=== PATIENT | female | born 1990 | race Caucasian/White ===

== ENCOUNTER 2017-11-30 23:20 | Emergency (ER) | payer SELFPAY ==
[~2017-11-30] VITALS: Ht 170.2 cm; Wt 95.3 kg
[~2017-11-30 23:20] MED LIST: ACHD5005 PO; CEPH500C PO; DCS100C PO; FRS325T PO; IBP600T1 PO; Ibuprofen PO; NAPR550T PO; ONDA8TAB9 PO; OXYC-12 PO; PNV; PREN1TAB39 PO; TYELNOL
[2017-11-30] MEDS ORDERED: RX-NAPROXEN (NAPROSYN) 250 MG TAB PPK#4 PO STA (23:50)
[2017-11-30] MEDS ORDERED: RX-TRAMADOL 50 MG (ULTRAM) TAB PPK#4 PO STA (23:50)
[2017-11-30] MEDS ORDERED: RX-CLINDAMYCIN 150 MG (CLEOCIN) CAP PPK#4 PO STA (23:50)
[2017-11-30] MEDS ORDERED: LIDOCAINE 1% INJ 50 ML (XYLOCAINE) VIAL ONE (23:50)
[2017-11-30] MEDS ORDERED: CLIN300C11 PO (23:54)
[2017-11-30] MEDS ORDERED: TRAM-42 PO (23:54)
[2017-11-30] MEDS ORDERED: LIDO15SO2 MM (23:54)
[2017-11-30] MEDS ORDERED: NAPR-915 PO (23:54)
--- NOTE | 2017-11-30 23:55 | ED EENT ---
History of Present Illness General Chief Complaint: Dental Problems/Pain Stated Complaint: TOOTH PAIN Nursing Triage Note: PT TO ED 10 W/ C/O RT SIDE DENTAL PAIN X4 DAYS W/ JAW SWELLING ONSET X2 DAYS. NO OTHER C/O VOICED Source: patient History of Present Illness Date Seen by Provider: Nov 30, 2017 Time Seen by Provider: 23:42 Initial Comments C/O DENTAL PAIN--RIGHT LOWER MOLAR--X 4 DAYS, WITH PAIN RADIATING UP TO RIGHT EVANGELICAL AREA C/O RIGHT JAW SWELLING X 2 DAYS NO FEVER HAS HISTORY OF FREQUENT DENTAL PROBLEMS,BUT HAS NOT SEEN A DENTIST IN OVER 6 MONTHS, AND HAS NOT ATTEMPTED TO CONTACT A DENTIST AT ANY TIME SINCE THESE CURRENT SYMPTOMS STARTED. STATES NO RELIEF WITH MAE AT 1900 TONIGHT STATES SHE CANNOT OPEN HER MOUTH DUE TO PAIN PCP:[facility] Allergies and Home Medications Allergies Coded Allergies: metronidazole (Verified Allergy, Unknown, 12/04/09) Home Medications Clindamycin HCl 300 Mg Capsule, 300 MG PO QID Prescribed by: JOE FISHMAN on 11/30/172353 Docusate Sodium 100 Mg Cap, 100 MG PO BID Prescribed by: HIREN HOANG on 04/18/14825 Ferrous Sulfate 325 Mg Tablet, 1 TAB PO BID, (Reported) Hydrocodone Bit/Acetaminophen 1 Tab Tab, 1-2 TAB PO Q4H PRN for PAIN Prescribed by: HIREN HOANG on 04/18/14825 Lidocaine HCl 15 Ml Solution, 1-2 ML MM Q 1-2 HOURS Prescribed by: JOE FISHMAN on 11/30/172353 Naproxen 500 Mg Tablet, 500 MG PO BID Prescribed by: JOE FISHMAN on 11/30/172353 Vits W-Ca,Fe,Fa(<1MG) 1 Each Tablet, 1 EACH PO DAILY, (Reported) Tramadol HCl 50 Mg Tablet, 50 MG PO Q4H Prescribed by: JOE FISHMAN on 11/30/172353 [Ibuprofen] 600 MG TAB, 600 MG PO Q6H PRN for PAIN Prescribed by: HIREN HOANG on 04/18/14825 Patient Home Medication List Home Medication List Reviewed: Yes Review of Systems Constitutional: no symptoms reported Eyes: No Symptoms Reported Ears: No Symptoms Reported Nose: no symptoms reported Mouth: see HPI Throat: no symptoms reported Respiratory: no symptoms reported Cardiovascular: no symptoms reported Gastrointestinal: no symptoms reported : No LMP: Nov 17, 2017 Musculoskeletal: no symptoms reported Skin: no symptoms reported Neurological: No Symptoms Reported Hematologic/Lymphatic: No Symptoms Reported Immunological/Allergic: no symptoms reported Past Wezdcpg-Iyidkk-Ewiivl Hx Patient Social History Alcohol Use: Occasionally Uses Recreational Drug Use: No Smoking Status: Current Everyday Smoker (1/2 PPD) Type Used: Cigarettes (2 PPD) Recent Foreign Travel: No Contact w/Someone Who Travel: No Recent Infectious Disease Expo: No Recent Hopitalizations: No Physical Abuse: No Sexual Abuse: No Mistreated: No Fear: No Immunizations Up To Date Tetanus Booster (TDap): Less than 5yrs Surgeries History of Surgeries: Yes (C-SECITON X 3; BTL) Surgeries: Section, Tubal Ligation Respiratory History of Respiratory Disorde: No Cardiovascular History of Cardiac Disorders: No Neurological History of Neurological Disord: No 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 System : No Hx 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 Disorders: No Sexually Transmitted Disease: No HIV/AIDS: No Female 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 Disorders: Denies BANQUET CHEF History: Tubal Ligation Genitourinary History of Genitourinary Disor: No Gastrointestinal History of Gastrointestinal Di: No Musculoskeletal History of Musculoskeletal Dis: No Endocrine History of Endocrine Disorders: No HEENT History of HEENT Disorders: Yes (DENTAL ISSUES) Hearing Impairment: Denies Cancer History of Cancer: No Psychosocial History of Psychiatric Problem: No Suicide Risk Score: 0 Integumentary History of Skin or Integumenta: No Blood Transfusions History of Blood Disorders: No Adverse Reaction to a Blood Tr: No Family Medical History Significant Family History: No Pertinent Family Hx Family Medial History: Family history: Asthma 19 MOTHER Family history: Thyroid disorder 19 MOTHER Hypercholesterolemia 19 MOTHER Physical Exam Vital Signs Vital Signs - First Documented 11/30/17 23:28 Temp 97.1 Pulse 91 Resp 20 B/P (MAP) 134/88 (103) Pulse Ox 99 O2 Delivery Room Air General Appearance: WD/WN, other (CRYING, SIPPING WATER ) Eyes: bilateral eye normal inspection, bilateral eye PERRL, bilateral eye EOMI Ears: bilateral ear auricle normal, bilateral ear canal normal, bilateral ear TM normal Nose: normal inspection Mouth/Throat: dental tenderness (RIGHT LOWER 2ND MOLAR WITH CARIES, TENDERNESS TO PERCUSSION AND SURROUNDING EDEMA AND INFLAMMATION TO ADJACENT GUM TISSUE. 3RD MOLARS DO NOT APPEAR TO BE ERUPTED. NO AREAS OF FLUCTUANCE. NO ERYTHEMA TO FACE. ), No excessive drooling, No foreign body, mandibular swelling (MILD TO MODERATE SWELLING ON RIGHT), trismus Neck: full range of motion, supple, lymphadenopathy (R) (MILD ANTERIOR CERVICAL AND SUBMENTAL ) Cardiovascular: regular rate, rhythm, no murmur Respiratory: normal breath sounds Neurologic/Psychiatric: knockdown worker II-XII nml as tested, no motor/sensory deficits, alert, oriented x 3 Skin: normal color, warm/dry Progress/Results/Core Measures Results/Orders My Orders Orders - JOE FISHMAN DO Ketorolac Injection (Toradol Injection) (12/01/17 00:00) Ceftriaxone Injection (Rocephin Injectio (12/01/17 00:00) Lidocaine 1% Injection (Xylocaine 1% Inj (12/01/17 00:00) Orphenadrine Injection (Norflex Injectio (12/01/17 00:00) Rx-Clindamycin Capsule (Rx-Cleocin Capsu (11/30/17 23:50) Rx-Tramadol Hcl (Rx-Ultram) (11/30/17 23:50) Rx-Naproxen (Rx-Naprosyn) (11/30/17 23:50) Lidocaine 1% (Xylocaine 1%) (11/30/17 23:50) Lidocaine 2% Viscous 15 Ml (Xylocaine Vi (12/01/17 00:00) Medications Given in ED Current Medications Medications Dose Ordered Sig/Gaurav Route Start Time Stop Time Status Last Admin Dose Admin Ceftriaxone Sodium 1,000 mg ONCE ONCE IM 12/01/17 00:00 12/01/17 00:01 DC 11/30/17 23:58 1,000 MG Ketorolac Tromethamine 60 mg ONCE ONCE IM 12/01/17 00:00 12/01/17 00:01 DC 12/01/17 00:00 60 MG Lidocaine HCl 5 ml ONCE ONCE MM 12/01/17 00:00 12/01/17 00:12 DC 12/01/17 00:15 5 ML Lidocaine HCl 50 ml STK-MED ONCE .ROUTE 11/30/17 23:50 11/30/17 23:54 DC 12/01/17 00:02 50 ML Orphenadrine Citrate 60 mg ONCE ONCE IM 12/01/17 00:00 12/01/17 00:01 DC 12/01/17 00:01 60 MG Vital Signs/I&O Vital Sign - Last 12Hours 11/30/17 12/01/17 23:28 00:15 Temp 97.1 Pulse 91 0 Resp 20 0 B/P (MAP) 134/88 (103) 0/0 Pulse Ox 99 0 O2 Delivery Room Air Blood Pressure Mean: 103 Progress Note : Progress Note PT ADVISED OF IMPORTANCE OF FOLLOW UP WITH DENTIST THIS WEEK FOR FURTHER CARE Departure Impression Impression: Primary Impression: Dental caries Additional Impression: Dental abscess Disposition: HOME, SELF-CARE Condition: Stable Departure-Patient Inst. [place] [facility] [place] Instructions: Dental Pain (DC), Tooth Abscess (DC) Add. Discharge Instructions: FREQUENT SALT WATER SWISHES ALTERNATE ICE AND HEAT TO AREA AT 20 MINUTE INTERVALS FOLLOW UP WITH DENTIST THIS WEEK FOR FURTHER CARE All discharge instructions reviewed with patient and/or family. Voiced understanding. Scripts Tramadol HCl (Ultram) 50 Mg Tablet 50 MG PO Q4H, #20 TAB Prov: JOE FISHMAN DO 11/30/17 Naproxen (Naproxen) 500 Mg Tablet 500 MG PO BID, #20 TAB Prov: JOE FISHMAN DO 11/30/17 Lidocaine HCl (Lidocaine HCl Viscous) 15 Ml Solution 1-2 ML MM Q 1-2 HOURS for Pain, #1 EA Prov: JOE FISHMAN DO 11/30/17 Clindamycin HCl (Clindamycin HCl) 300 Mg Capsule 300 MG PO QID for FOR INFECTION, #40 CAP Prov: JOE FISHMAN DO 11/30/17 JOE FISHMAN DO Nov 30, 2017 23:55
[2017-12-01] MEDS ORDERED: cefTRIAXone 1 GM (ROCEPHIN) VIAL IM ONE
[2017-12-01] MEDS ORDERED: ORPHENADRINE 60 MG/2 ML (NORFLEX) AMP IM ONE
[2017-12-01] MEDS ORDERED: KETOROLAC 60 MG/2 ML VIAL IM ONE
[2017-12-01] MEDS ORDERED: LIDOCAINE 1% INJ 20 ML (XYLOCAINE) VIAL INJ ONE
[2017-12-01] MEDS ORDERED: LIDOCAINE 2% VISCOUS 15 ML UDC MM ONE
[2017-12-01 00:15] VITALS: BP 0/0
== END 2017-12-01 00:15 | disposition home or self-care (01) ==
LOC: EDUNIT# 23:20 → ER 23:24
DX: K02.9 Dental caries, unspecified (principal); K04.7 Periapical abscess without sinus; F17.210 Nicotine dependence, cigarettes, uncomplicated; Z88.1 Allergy status to other antibiotic agents; Z98.51 Tubal ligation status; Z87.59 Personal history of other complications of pregnancy, childbirth and the puerperium
CPT/HCPCS: 96372; 99284

== ENCOUNTER 2018-01-01 14:43 | Inpatient (IN) | payer SELFPAY ==
[~2018-01-01] VITALS: Ht 170.2 cm; Wt 86.3 kg
[~2018-01-01 14:43] MED LIST changes: +AMOX500C2 PO; +CEFU500T63 PO; +CLIN300C11 PO; +HYDR-757 PO; +LIDO15SO2 MM; +NAPR-915 PO; +TRAM-42 PO
--- OUTSIDE RECORDS SUMMARY | 2018-01-01 14:48 | XMS REPORT | Continuity of Care Document ---
Author Author [facility] Organization [facility] Address Unknown Phone Unavailable Allergies Active Description Code Type Severity Reaction Onset Reported/Identified Relationship to Patient Clinical Status Yes metronidazole [id number] Drug Allergy Unknown N/A 12/04/2009 Yes metronidazole [id number] Drug Allergy Unknown RASH 12/08/2017 Medications There is no data. Problems Date Dx Coded Attending Type Code Diagnosis Diagnosed By 01/22/2011 654.20 Previous C- section 01/22/2011 V22.1 , Normal Other 01/22/2011 654.20 Previous C- section 01/22/2011 V22.1 , Normal Other 01/22/2011 654.20 Previous C- section 01/22/2011 V22.1 , Normal Other 01/22/2011 654.20 Previous C- section 01/22/2011 V22.1 , Normal Other 01/22/2011 NICHOLAS KHALIL DO 654.20 Previous 01/22/2011 NICHOLAS KHALIL DO K V22.1 , Normal Other 01/22/2011 DUNG ENVIRONMENTAL HEALTH TECHNOLOGIST, JET A 654.20 Previous 01/22/2011 DUNG ENVIRONMENTAL HEALTH TECHNOLOGIST, JET A V22.1 , Normal Other 01/22/2011 DUNG APRN, EJT A 654.20 Previous 01/22/2011 DUNG ENVIRONMENTAL HEALTH TECHNOLOGIST, JET A V22.1 , Normal Other 01/22/2011 NOE KHALIL DOA K 654.20 Previous 01/22/2011 NICHOLAS KHALIL DO K V22.1 , Normal Other 01/22/2011 JUNITO STOVER, BRUNA Silver 654.20 Previous 01/22/2011 BRUNA WILD MD V22.1 , Normal Other 01/22/2011 JUNITO STOVER, BRUNA Silver 654.20 Previous 01/22/2011 BRUNA WILD MD2.1 , Normal Other 01/22/2011 BRUNA WILD MD 654.20 Previous 01/22/2011 BRUNA WILD MD V22.1 , Normal Other 01/22/2011 JET RAZO APRN 654.20 Previous 01/22/2011 JET RAZO APRN V22.1 , Normal Other 02/04/2011 V04.3 Rubella Non- immune - Need For Vaccination 02/04/2011 V04.3 Rubella Non- immune - Need For Vaccination 02/04/2011 V04.3 Rubella Non- immune - Need For Vaccination 02/04/2011 V04.3 Rubella Non- immune - Need For Vaccination 02/04/2011 NICHOLAS KHALIL DO V04.3 Rubella Non-immune - Need For Vaccination 02/04/2011 JET RAZO APRN V04.3 Rubella Non-immune - Need For Vaccination 02/04/2011 JET RAZO APRN V04.3 Rubella Non-immune - Need For Vaccination 02/04/2011 NICHOLAS KHALIL DO V04.3 Rubella Non-immune - Need For Vaccination 02/04/2011 BRUNA WILD MD V04.3 Rubella Non-immune - Need For Vaccination 02/04/2011 BRUNA WILD MD V04.3 Rubella Non-immune - Need For Vaccination 02/04/2011 BRUNA WILD MD V04.3 Rubella Non-immune - Need For Vaccination 02/04/2011 JET RAZO APRN V04.3 Rubella Non-immune - Need For Vaccination 02/13/2011 V72.31 Toll Ticket Clerk Exam, Routine 02/13/2011 V74.5 Std Screen 02/13/2011 V72.31 Toll Ticket Clerk Exam, Routine 02/13/2011 V74.5 Std Screen 02/13/2011 V72.31 Toll Ticket Clerk Exam, Routine 02/13/2011 V74.5 Std Screen 02/13/2011 V72.31 Toll Ticket Clerk Exam, Routine 02/13/2011 V74.5 Std Screen 02/13/2011 NICHOLAS KHALIL DO V72.31 Toll Ticket Clerk Exam, Routine 02/13/2011 KHALIL DO, NICHOLAS K V74.5 Std Screen 02/13/2011 DUNG ENVIRONMENTAL HEALTH TECHNOLOGIST, JET A V72.31 Toll Ticket Clerk Exam, Routine 02/13/2011 DUNG ENVIRONMENTAL HEALTH TECHNOLOGIST, JET A V74.5 Std Screen 02/13/2011 DUNG ENVIRONMENTAL HEALTH TECHNOLOGIST, JET A V72.31 Toll Ticket Clerk Exam, Routine 02/13/2011 DUNG ENVIRONMENTAL HEALTH TECHNOLOGIST, JET A V74.5 Std Screen 02/13/2011 NICHOLAS KHALIL DO K V72.31 Toll Ticket Clerk Exam, Routine 02/13/2011 NICHOLAS KHALIL DO K V74.5 Std Screen 02/13/2011 JUNITO STOVER, BRUNA Silver V72.31 Toll Ticket Clerk Exam, Routine 02/13/2011 JUNITO STOVER, BRUNA Silver V74.5 Std Screen 02/13/2011 JUNITO STOVER, BRUNA Silver V72.31 Toll Ticket Clerk Exam, Routine 02/13/2011 JUNITO STOVER, BRUNA Silver V74.5 Std Screen 02/13/2011 JUNITO STOVER, BRUNA Silver V72.31 Toll Ticket Clerk Exam, Routine 02/13/2011 JUNITO STOVER, BRUNA Silver V74.5 Std Screen 02/13/2011 DUNG ENVIRONMENTAL HEALTH TECHNOLOGIST, JET A V72.31 Toll Ticket Clerk Exam, Routine 02/13/2011 DUNG ENVIRONMENTAL HEALTH TECHNOLOGIST, JET A V74.5 Std Screen 05/27/2011 V04.81 Flu Shot 05/27/2011 V04.81 Flu Shot 05/27/2011 V04.81 Flu Shot 05/27/2011 V04.81 Flu Shot 05/27/2011 NICHOLAS KHALIL DO V04.81 Flu Shot 05/27/2011 DUNG APRN, JET A V04.81 Flu Shot 05/27/2011 DUNG APRN, JET A V04.81 Flu Shot 05/27/2011 NICHOLAS KHALIL DO V04.81 Flu Shot 05/27/2011 JUNITO STOVER, BRUNA Silver V04.81 Flu Shot 05/27/2011 JUNITO STOVER, BRUNA Silver V04.81 Flu Shot 05/27/2011 JUNITO STOVER, BRUNA Silver V04.81 Flu Shot 05/27/2011 DUNGKori VILLA JET A V04.81 Flu Shot 10/07/2011 V24.2 visit for: exam 10/07/2011 V25.01 Oral Contraceptives 10/07/2011 V25.9 Gynecologic Services Contraceptive Management 10/07/2011 V24.2 visit for: exam 10/07/2011 V25.01 Oral Contraceptives 10/07/2011 V25.9 Gynecologic Services Contraceptive Management 10/07/2011 V24.2 visit for: exam 10/07/2011 V25.01 Oral Contraceptives 10/07/2011 V25.9 Gynecologic Services Contraceptive Management 10/07/2011 V24.2 visit for: exam 10/07/2011 V25.01 Oral Contraceptives 10/07/2011 V25.9 Gynecologic Services Contraceptive Management 10/07/2011 NOE KHALIL DOA K V24.2 visit for: exam 10/07/2011 NICHOLAS KHALIL DO V25.01 Oral Contraceptives 10/07/2011 NOE KHALIL DOA K V25.9 Gynecologic Services Contraceptive Management 10/07/2011 MARTIN RAZO APRNIDI A V24.2 visit for: exam 10/07/2011 MARTIN RAZO APRNIDI A V25.01 Oral Contraceptives 10/07/2011 DUNG VILLA JET A V25.9 Gynecologic Services Contraceptive Management 10/07/2011 DUNGKroi VILLA JET A V24.2 visit for: exam 10/07/2011 MARTIN RAZO APRNIDI A V25.01 Oral Contraceptives 10/07/2011 DUNG VILLA JET A V25.9 Gynecologic Services Contraceptive Management 10/07/2011 NOE KHALIL DOA K V24.2 visit for: exam 10/07/2011 NICHOLAS KHALIL DO K V25.01 Oral Contraceptives 10/07/2011 NICHOLAS KHALIL DO K V25.9 Gynecologic Services Contraceptive Management 10/07/2011 BRUNA WILD MD V24.2 visit for: exam 10/07/2011 BRUNA WILD MD V25.01 Oral Contraceptives 10/07/2011 BRUNA WILD MD V25.9 Gynecologic Services Contraceptive Management 10/07/2011 BRUNA WILD MD V24.2 visit for: exam 10/07/2011 BRUNA WILD MD V25.01 Oral Contraceptives 10/07/2011 BRUNA WILD MD V25.9 Gynecologic Services Contraceptive Management 10/07/2011 JUNITO STOVER, BRUNA Silver V24.2 visit for: exam 10/07/2011 BRUNA WILD MD V25.01 Oral Contraceptives 10/07/2011 BRUNA WLID MD V25.9 Gynecologic Services Contraceptive Management 10/07/2011 JET RAZO APRN V24.2 visit for: exam 10/07/2011 JET RAZO APRN V25.01 Oral Contraceptives 10/07/2011 JET RAZO APRN V25.9 Gynecologic Services Contraceptive Management 01/22/2013 724.2 LUMBAGO/ LOW BACK PAIN 01/22/2013 724.2 LUMBAGO/ LOW BACK PAIN 01/22/2013 724.2 LUMBAGO/ LOW BACK PAIN 01/22/2013 724.2 LUMBAGO/ LOW BACK PAIN 01/22/2013 NICHOLAS KHALIL DO 724.2 LUMBAGO/ LOW BACK PAIN 01/22/2013 JET RAZO APRN A 724.2 LUMBAGO/ LOW BACK PAIN 01/22/2013 JET RAZO APRN A 724.2 LUMBAGO/ LOW BACK PAIN 01/22/2013 NICHOLAS KHALIL DO 724.2 LUMBAGO/ LOW BACK PAIN 01/22/2013 BRUNA WILD MD 724.2 LUMBAGO/ LOW BACK PAIN 01/22/2013 BRUNA WILD MD 724.2 LUMBAGO/ LOW BACK PAIN 01/22/2013 BRUNA WILD MD 724.2 LUMBAGO/ LOW BACK PAIN 01/22/2013 JET RAZO APRN A 724.2 LUMBAGO/ LOW BACK PAIN 02/01/2013 381.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 02/01/2013 381.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 02/01/2013 381.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 02/01/2013 NICHOLAS KHALIL DO 381.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 02/01/2013 JET RAZO APRN A 381.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 02/01/2013 JET RAZO APRN 381.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 02/01/2013 NICHOLAS KHALIL DO 381.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 02/01/2013 BRUNA WLID MD 381.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 02/01/2013 BRUNA WILD MD 381.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 02/01/2013 BRUNA WILD MD 381.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 02/01/2013 JET RAZO APRN A 381.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 03/15/2013 649.00 COMPL OF - TOBACCO USE 03/15/2013 649.00 COMPL OF - TOBACCO USE 03/15/2013 NICHOLAS KHALIL DO K 649.00 COMPL OF - TOBACCO USE 03/15/2013 JET RAZO APRN A 649.00 COMPL OF - TOBACCO USE 03/15/2013 JET RAZO APRN A 649.00 COMPL OF - TOBACCO USE 03/15/2013 NICHOLAS KHALIL DO K 649.00 COMPL OF - TOBACCO USE 03/15/2013 BRUNA WILD MD 649.00 COMPL OF - TOBACCO USE 03/15/2013 BRUNA WILD MD 649.00 COMPL OF - TOBACCO USE 03/15/2013 BRUNA WILD MD 649.00 COMPL OF - TOBACCO USE 03/15/2013 JET RAZO APRN 649.00 COMPL OF - TOBACCO USE 03/26/2013 634.90 , SPONTANEOUS UNSPECIFIED WITHOUT COMPLICATION 03/26/2013 NICHOLAS KHALIL DO 634.90 , SPONTANEOUS UNSPECIFIED WITHOUT COMPLICATION 03/26/2013 JET RAZO APRN A 634.90 , SPONTANEOUS UNSPECIFIED WITHOUT COMPLICATION 03/26/2013 JET RAZO APRN A 634.90 , SPONTANEOUS UNSPECIFIED WITHOUT COMPLICATION 03/26/2013 NICHOLAS KHALIL DO 634.90 , SPONTANEOUS UNSPECIFIED WITHOUT COMPLICATION 03/26/2013 BRUNA WILD MD 634.90 , SPONTANEOUS UNSPECIFIED WITHOUT COMPLICATION 03/26/2013 BRUNA WILD MD 634.90 , SPONTANEOUS UNSPECIFIED WITHOUT COMPLICATION 03/26/2013 BRUNA WILD MD 634.90 , SPONTANEOUS UNSPECIFIED WITHOUT COMPLICATION 03/26/2013 MARTIN RAZO APRNIDI A 634.90 , SPONTANEOUS UNSPECIFIED WITHOUT COMPLICATION 03/26/2013 KLEVER MARTINEZ Ot 599.0 URIN TRACT INFECTION NOS 03/26/2013 KLEVER MARTINEZ Ot 632 MISSED 12/20/2013 NICHOLAS KHALIL DO V72.42 TEST POSITIVE RESULT 12/20/2013 DUNG ENVIRONMENTAL HEALTH TECHNOLOGIST, JET A V72.42 TEST POSITIVE RESULT 12/20/2013 DUNGKori VILLA JET A V72.42 TEST POSITIVE RESULT 12/20/2013 NICHOLAS KHALIL DO V72.42 TEST POSITIVE RESULT 12/20/2013 BRUNA WILD MD V72.42 TEST POSITIVE RESULT 12/20/2013 BRUNA WILD MD V72.42 TEST POSITIVE RESULT 12/20/2013 BRUNA WILD MD V72.42 TEST POSITIVE RESULT 12/20/2013 DUNG ENVIRONMENTAL HEALTH TECHNOLOGIST, JET A V72.42 TEST POSITIVE RESULT 12/22/2013 DUNG ENVIRONMENTAL HEALTH TECHNOLOGIST, JET A 654.20 PREVIOUS 12/22/2013 DUNG HOLTKori JET A V23.7 , HIGH RISK W/ INSUFFICIENT CARE 12/22/2013 DUNG ENVIRONMENTAL HEALTH TECHNOLOGIST, JET A 654.20 PREVIOUS 12/22/2013 DUNG ENVIRONMENTAL HEALTH TECHNOLOGIST, JET A V23.7 , HIGH RISK W/ INSUFFICIENT CARE 12/22/2013 NICHOLAS KHALIL DO 654.20 PREVIOUS 12/22/2013 NICHOLAS KHALIL DO V23.7 , HIGH RISK W/ INSUFFICIENT CARE 12/22/2013 BRUNA WILD MD 654.20 PREVIOUS 12/22/2013 BRUNA WILD MD V23.7 , HIGH RISK W/ INSUFFICIENT CARE 12/22/2013 BRUNA WILD MD 654.20 PREVIOUS 12/22/2013 BRUNA WILD MD V23.7 , HIGH RISK W/ INSUFFICIENT CARE 12/22/2013 BRUNA WILD MD 654.20 PREVIOUS 12/22/2013 BRUNA WILD MD V23.7 , HIGH RISK W/ INSUFFICIENT CARE 12/22/2013 JET RAZO APRN 654.20 PREVIOUS 12/22/2013 JET RAZO APRN V23.7 , HIGH RISK W/ INSUFFICIENT CARE 01/05/2014 JET RAZO APRN 648.30 COMPL OF - DRUG DEPENDENCE 01/05/2014 MARTIN RAZO APRNMÑEO [place] V04.3 RUBELLA NON-IMMUNE - NEED FOR VACCINATION 01/05/2014 MARTIN RAZO APRNIDI A V74.5 STD SCREEN 01/05/2014 MARTIN RAZO APRNMEÑO [place] V76.2 CERVICAL CANCER SCREENING (PAP SMEAR) 01/05/2014 NIHCOLAS KHALIL DO 648.30 COMPL OF - DRUG DEPENDENCE 01/05/2014 NICHOLAS KHALIL DO V04.3 RUBELLA NON-IMMUNE - NEED FOR VACCINATION 01/05/2014 NICHOLAS KHALIL DO V74.5 STD SCREEN 01/05/2014 NICHOLAS KHALIL DO V76.2 CERVICAL CANCER SCREENING (PAP SMEAR) 01/05/2014 BRUNA WILD MD 648.30 COMPL OF - DRUG DEPENDENCE 01/05/2014 BRUNA WILD MD V04.3 RUBELLA NON-IMMUNE - NEED FOR VACCINATION 01/05/2014 BRUNA WILD MD V74.5 STD SCREEN 01/05/2014 BRUNA WILD MD V76.2 CERVICAL CANCER SCREENING (PAP SMEAR) 01/05/2014 BRUNA WILD MD 648.30 COMPL OF - DRUG DEPENDENCE 01/05/2014 BRUNA WILD MD V04.3 RUBELLA NON-IMMUNE - NEED FOR VACCINATION 01/05/2014 BRUNA WILD MD V74.5 STD SCREEN 01/05/2014 BRUNA WILD MD V76.2 CERVICAL CANCER SCREENING (PAP SMEAR) 01/05/2014 BRUNA WILD MD 648.30 COMPL OF - DRUG DEPENDENCE 01/05/2014 BRUNA WILD MD V04.3 RUBELLA NON-IMMUNE - NEED FOR VACCINATION 01/05/2014 BRUNA WILD MD V74.5 STD SCREEN 01/05/2014 BRUNA WILD MD6.2 CERVICAL CANCER SCREENING (PAP SMEAR) 01/05/2014 JET RAZO APRN 648.30 COMPL OF - DRUG DEPENDENCE 01/05/2014 JET RAZO APRN V04.3 RUBELLA NON-IMMUNE - NEED FOR VACCINATION 01/05/2014 JET RAZO APRN V74.5 STD SCREEN 01/05/2014 JET RAZO APRN V76.2 CERVICAL CANCER SCREENING (PAP SMEAR) 02/09/2014 NICHOLAS KHALIL DO V06.1 TDAP DX 02/09/2014 JUNITO STOVER, BRUNA Silver V06.1 TDAP DX 02/09/2014 JUNITO STOVER, BRUNA Silver V06.1 TDAP DX 02/09/2014 JUNITO STOVER, BRUNA Silver V06.1 TDAP DX 02/09/2014 JET RAZO APRN V06.1 TDAP DX 04/18/2014 MAURICE SERRANO DO Ot 649.01 TOBACCO USE DISORDER COMP PREG/CHILDBIRT 04/18/2014 MAURICE SERRANO DO Ot 654.21 PREV DELIVRY W/ OR W/O MENT ANT 04/18/2014 MAURICE SERRANO DO Ot 663.31 CORD ENTANGLE NEC-DELIV 04/18/2014 MAURIEC SERRANO DO Ot V06.4 [id number]-[id number]-[id number]-RUBELLA 04/18/2014 MAURICE SERRANO DO Ot V27.0 DELIVER-SINGLE LIVEBORN 06/15/2016 Ot V28.8 11/13/2016 Ot V28.8 01/13/2017 Ot V28.8 11/30/2017 JET RAZO APRN Ot V28.81 ENCOUNTER FOR ANATOMIC SURVEY 11/30/2017 BRUNA WILD MD Ot 652.23 BREECH PRESENT-ANTEPART 11/30/2017 BRUNA WILD MD Ot V28.81 ENCOUNTER FOR ANATOMIC SURVEY 11/30/2017 MAURICE SERRANO DO Ot 654.23 PREV DELIVERY, ANTEPARTUM COND 11/30/2017 MAURICE SERRANO DO Ot V72.84 EXAM PRE-OPERATIVE NOS 12/01/2017 KYE DO, JOE K Ot F17.210 NICOTINE DEPENDENCE, CIGARETTES, UNCOMPL 12/01/2017 KYE DO, JOE K Ot K02.9 DENTAL CARIES, UNSPECIFIED 12/01/2017 KYE DO, JOE K Ot K04.7 PERIAPICAL ABSCESS WITHOUT SINUS 12/01/2017 KYE DO, JOE K Ot K08.89 OTHER SPECIFIED DISORDERS OF TEETH AND S 12/01/2017 KYE DO, JOE K Ot Z87.59 PERSONAL HISTORY OF COMP OF PREG, CHLDBR 12/01/2017 KYE DO, JOE K Ot Z88.1 ALLERGY STATUS TO OTHER ANTIBIOTIC AGENT 12/01/2017 KYE DO, JOE K Ot Z98.51 TUBAL LIGATION STATUS 12/02/2017 KYE DO, JOE K Ot F17.210 NICOTINE DEPENDENCE, CIGARETTES, UNCOMPL 12/02/2017 KYE DO, JOE K Ot K02.9 DENTAL CARIES, UNSPECIFIED 12/02/2017 KYE DO, JOE K Ot K04.7 PERIAPICAL ABSCESS WITHOUT SINUS 12/02/2017 KYE DO, JOE K Ot K08.89 OTHER SPECIFIED DISORDERS OF TEETH AND S 12/02/2017 KYE DO, JOE K Ot Z87.59 PERSONAL HISTORY OF COMP OF PREG, CHLDBR 12/02/2017 KYE DO, JOE K Ot Z88.1 ALLERGY STATUS TO OTHER ANTIBIOTIC AGENT 12/02/2017 KYE DO, JOE K Ot Z98.51 TUBAL LIGATION STATUS 12/11/2017 TEMO FLANAGAN MD Ot F17.210 NICOTINE DEPENDENCE, CIGARETTES, UNCOMPL 12/11/2017 TEMO FLANAGAN MD Ot K02.9 DENTAL CARIES, UNSPECIFIED 12/11/2017 TEMO FLANAGAN MD Ot K04.7 PERIAPICAL ABSCESS WITHOUT SINUS 12/11/2017 TEMO FLANAGAN MD Ot L03.211 CELLULITIS OF FACE 12/11/2017 TEMO FLANAGAN MD Ot M60.08 INFECTIVE MYOSITIS, OTHER SITE 12/11/2017 TEMO FLANAGAN MD Ot R09.02 HYPOXEMIA 12/13/2017 TEMO FLANAGAN MD Ot B37.3 CANDIDIASIS OF VULVA AND VAGINA 12/13/2017 TEMO FLANAGAN MD Ot F17.210 NICOTINE DEPENDENCE, CIGARETTES, UNCOMPL 12/13/2017 TEMO FLANAGAN MD Ot K02.9 DENTAL CARIES, UNSPECIFIED 12/13/2017 TEMO FLANAGAN MD, Ot K04.7 PERIAPICAL ABSCESS WITHOUT SINUS 12/13/2017 TEMO FLANAGAN MD Ot L03.211 CELLULITIS OF FACE 12/13/2017 TEMO FLANAGAN MD, Ot M60.08 INFECTIVE MYOSITIS, OTHER SITE 12/13/2017 TEMO FLANAGAN MD Ot R09.02 HYPOXEMIA 12/13/2017 TEMO FLANAGAN MD, Ot R25.2 CRAMP AND SPASM Procedures Code Description Performed By Performed On 74.1 LOW CERVICAL 01/05/2010 63205 URINE TEST (IN- HOUSE) 03/15/2013 98534 US OB - EARLY <14 WEEKS 03/16/2013 47322 TEST, URINE (IN- HOUSE) 12/20/2013 82136 ROUTINE VENIPUNCTURE 12/22/2013 79835 UA OB DIP 12/22/2013 26625 URINE DRUG SCREEN (IN-HOUSE ) 12/22/2013 72942 US OB - COMPLETE >14 WEEKS 12/22/2013 33554 SYPHILLIS-[facility] 12/22/2013 27507 HIV ([facility]) 12/22/2013 34161 ANTIBODY SCREEN (order) 12/22/2013 38268 HEP B SURFACE ANTIGEN ([facility] ) 12/22/2013 77242 CBC 12/23/2013 88079 TSH 12/23/2013 [id number] ANTIBODY SCREEN (RESULT ONLY) 12/24/2013 18205 BLOOD TYPE/Rh FACTOR 12/24/2013 73338 RUBELLA ANTIBODY, IGG 12/24/2013 87484 CULTURE URINE 12/24/2013 33602 UA OB DIP 01/05/2014 83183 TRICHOMONAS (IN-HOUSE) 01/05/2014 08928 GC/CHLAM PROBE ([facility]) 01/07/2014 Q0091 PAP SMEAR OBTAIN SMEAR 01/07/2014 23198 CULTURE UROGENITAL 01/08/2014 46051 PAP SMEAR 01/10/2014 32971 ROUTINE VENIPUNCTURE 01/19/2014 10798 UA OB DIP 01/19/2014 36202 GLUCOSE KWADWO 1 HOUR 01/19/2014 45338 UA OB DIP 02/09/2014 78126 US OB - FOLLOW UP 02/15/2014 43073 UA OB DIP 02/23/2014 40081 UA OB DIP 03/23/2014 98756 CULTURE GROUP B STREP VAG 03/25/2014 22409 UA OB DIP 03/30/2014 47947 UA OB DIP 04/06/2014 04865 UA OB DIP 04/13/2014 Obstetric Abiel Medina 04/13/2014 74.1 LOW CERVICAL 04/15/2014 Results Test Result Range Complete blood count (CBC) with automated white blood cell (WBC) differential - 12/08/17 09:35 Blood leukocytes automated count (number/volume) 16.3 10*3/uL 4.3-11.0 Blood erythrocytes automated count (number/volume) 4.55 10*6/uL 4.35-5.85 Venous blood hemoglobin measurement (mass/volume) 12.5 g/dL 11.5-16.0 Blood hematocrit (volume fraction) 38 % 35-52 Automated erythrocyte mean corpuscular volume 83 [foz_us] 80-99 Automated erythrocyte mean corpuscular hemoglobin (mass per erythrocyte) 28 pg 25-34 Automated erythrocyte mean corpuscular hemoglobin concentration measurement ( mass/volume) 33 g/dL 32-36 Automated erythrocyte distribution width ratio 15.1 % 10.0-14.5 Automated blood platelet count (count/volume) 533 10*3/uL 130-400 Automated blood platelet mean volume measurement 10.5 [foz_us] 7.4-10.4 Automated blood neutrophils/100 leukocytes 73 % 42-75 Automated blood lymphocytes/100 leukocytes 18 % 12-44 Blood monocytes/100 leukocytes 8 % 0-12 Automated blood eosinophils/100 leukocytes 1 % 0-10 Automated blood basophils/100 leukocytes 0 % 0-10 Blood neutrophils automated count (number/volume) 11.9 10*3 1.8-7.8 Blood lymphocytes automated count (number/volume) 2.9 10*3 1.0-4.0 Blood monocytes automated count (number/volume) 1.3 10*3 0.0-1.0 Automated eosinophil count 0.2 10*3/uL 0.0-0.3 Automated blood basophil count (count/volume) 0.0 10*3/uL 0.0-0.1 Blood lactic acid measurement (moles/volume) - 12/08/17 09:35 Blood lactic acid measurement (moles/volume) 0.71 mmol/L 0.50-2.00 Comprehensive metabolic panel - 12/08/17 09:35 Serum or plasma sodium measurement (moles/volume) 137 mmol/L 135-145 Serum or plasma potassium measurement (moles/volume) 4.2 mmol/L 3.6-5.0 Serum or plasma chloride measurement (moles/volume) 102 mmol/L 98-107 Carbon dioxide 26 mmol/L 21-32 Serum or plasma anion gap determination (moles/volume) 9 mmol/L 5-14 Serum or plasma urea nitrogen measurement (mass/volume) 7 mg/dL 7-18 Serum or plasma creatinine measurement (mass/volume) 0.71 mg/dL 0.60-1.30 Serum or plasma urea nitrogen/creatinine mass ratio 10 NRG Serum or plasma creatinine measurement with calculation of estimated glomerular filtration rate > NRG Serum or plasma glucose measurement (mass/volume) 86 mg/dL 70-105 Serum or plasma calcium measurement (mass/volume) 9.4 mg/dL 8.5-10.1 Serum or plasma total bilirubin measurement (mass/volume) 0.3 mg/dL 0.1-1.0 Serum or plasma alkaline phosphatase measurement (enzymatic activity/volume) 112 U/L 40-136 Serum or plasma aspartate aminotransferase measurement (enzymatic activity/ volume) 14 U/L 5-34 Serum or plasma alanine aminotransferase measurement (enzymatic activity/volume ) 15 U/L 0-55 Serum or plasma protein measurement (mass/volume) 7.5 g/dL 6.4-8.2 Serum or plasma albumin measurement (mass/volume) 3.8 g/dL 3.2-4.5 Serum or plasma amylase measurement (enzymatic activity/volume) - 12/08/17 09: 35 Serum or plasma amylase measurement (enzymatic activity/volume) 14 U /L 25-125 Lipase - 12/08/17 09:35 Lipase 6 U/L 8-78 Blood manual differential performed detection - 12/08/17 09:35 Blood monocytes/100 leukocytes 9 % NRG Manual blood segmented neutrophils/100 leukocytes 65 % NRG Blood band neutrophils/100 leukocytes 2 % NRG Manual blood lymphocytes/100 leukocytes 23 % NRG Manual eosinophils/100 leukocytes in nose 0 % NRG Manual blood basophils/100 leukocytes 1 % NRG Blood ovalocytes detection by light microscopy SLIGHT NRG Serum or plasma choriogonadotropin ( test) detection - 12/08/17 09:35 Serum or plasma choriogonadotropin ( test) detection NEGATIVE NEGATIVE Bacterial blood culture - 12/08/17 09:35 Bacterial blood culture NG NRG Bacterial blood culture - 12/08/17 09:54 Bacterial blood culture NG NRG Methicillin resistant Staphylococcus aureus (MRSA) screening culture - 13:54 Methicillin resistant Staphylococcus aureus (MRSA) screening culture NEG NRG Bacteria identification in isolate by anaerobe culture - 12/08/17 18:58 QUANTITY OF GROWTH Moderate Growth NRG Bacteria identification in isolate by anaerobe culture [id number] NRG Gram stain microscopy - 12/08/17 18:58 GRAM STAIN RESULT FEW GRAM NEGATIVE RODS NRG Bacteria identification in wound by culture - 12/08/17 18:58 Bacteria identification in wound by culture [id number] NRG FREE TEXT EXTERNAL MORE THAN ONE COLONY TYPE NRG QUANTITY OF GROWTH Moderate Growth NRG FREE TEXT ENTRY 2 [id number] [facility] Comprehensive metabolic panel - 12/09/17 05:10 Serum or plasma sodium measurement (moles/volume) 135 mmol/L 135-145 Serum or plasma potassium measurement (moles/volume) 4.0 mmol/L 3.6-5.0 Serum or plasma chloride measurement (moles/volume) 103 mmol/L 98-107 Carbon dioxide 21 mmol/L 21-32 Serum or plasma anion gap determination (moles/volume) 11 mmol/L 5-14 Serum or plasma urea nitrogen measurement (mass/volume) 8 mg/dL 7-18 Serum or plasma creatinine measurement (mass/volume) 0.68 mg/dL 0.60-1.30 Serum or plasma urea nitrogen/creatinine mass ratio 12 NRG Serum or plasma creatinine measurement with calculation of estimated glomerular filtration rate > NRG Serum or plasma glucose measurement (mass/volume) 146 mg/dL 70-105 Serum or plasma calcium measurement (mass/volume) 9.0 mg/dL 8.5-10.1 Serum or plasma total bilirubin measurement (mass/volume) 0.3 mg/dL 0.1-1.0 Serum or plasma alkaline phosphatase measurement (enzymatic activity/volume) 99 U/L 40-136 Serum or plasma aspartate aminotransferase measurement (enzymatic activity/ volume) 16 U/L 5-34 Serum or plasma alanine aminotransferase measurement (enzymatic activity/volume ) 13 U/L 0-55 Serum or plasma protein measurement (mass/volume) 6.9 g/dL 6.4-8.2 Serum or plasma albumin measurement (mass/volume) 3.5 g/dL 3.2-4.5 Complete blood count (CBC) with automated white blood cell (WBC) differential - 12/09/17 05:10 Blood leukocytes automated count (number/volume) 24.7 10*3/uL 4.3-11.0 Blood erythrocytes automated count (number/volume) 4.48 10*6/uL 4.35-5.85 Venous blood hemoglobin measurement (mass/volume) 12.1 g/dL 11.5-16.0 Blood hematocrit (volume fraction) 37 % 35-52 Automated erythrocyte mean corpuscular volume 82 [foz_us] 80-99 Automated erythrocyte mean corpuscular hemoglobin (mass per erythrocyte) 27 pg 25-34 Automated erythrocyte mean corpuscular hemoglobin concentration measurement ( mass/volume) 33 g/dL 32-36 Automated erythrocyte distribution width ratio 15.1 % 10.0-14.5 Automated blood platelet count (count/volume) 585 10*3/uL 130-400 Automated blood platelet mean volume measurement 10.7 [foz_us] 7.4-10.4 Automated blood neutrophils/100 leukocytes 93 % 42-75 Automated blood lymphocytes/100 leukocytes 5 % 12-44 Blood monocytes/100 leukocytes 3 % 0-12 Automated blood eosinophils/100 leukocytes 0 % 0-10 Automated blood basophils/100 leukocytes 0 % 0-10 Blood neutrophils automated count (number/volume) 22.9 10*3 1.8-7.8 Blood lymphocytes automated count (number/volume) 1.1 10*3 1.0-4.0 Blood monocytes automated count (number/volume) 0.7 10*3 0.0-1.0 Automated eosinophil count 0.0 10*3/uL 0.0-0.3 Automated blood basophil count (count/volume) 0.0 10*3/uL 0.0-0.1 Complete blood count (CBC) with automated white blood cell (WBC) differential - 12/10/17 05:15 Blood leukocytes automated count (number/volume) 16.2 10*3/uL 4.3-11.0 Blood erythrocytes automated count (number/volume) 4.14 10*6/uL 4.35-5.85 Venous blood hemoglobin measurement (mass/volume) 11.1 g/dL 11.5-16.0 Blood hematocrit (volume fraction) 34 % 35-52 Automated erythrocyte mean corpuscular volume 83 [foz_us] 80-99 Automated erythrocyte mean corpuscular hemoglobin (mass per erythrocyte) 27 pg 25-34 Automated erythrocyte mean corpuscular hemoglobin concentration measurement ( mass/volume) 33 g/dL 32-36 Automated erythrocyte distribution width ratio 15.3 % 10.0-14.5 Automated blood platelet count (count/volume) 511 10*3/uL 130-400 Automated blood platelet mean volume measurement 10.6 [foz_us] 7.4-10.4 Automated blood neutrophils/100 leukocytes 67 % 42-75 Automated blood lymphocytes/100 leukocytes 26 % 12-44 Blood monocytes/100 leukocytes 6 % 0-12 Automated blood eosinophils/100 leukocytes 1 % 0-10 Automated blood basophils/100 leukocytes 0 % 0-10 Blood neutrophils automated count (number/volume) 10.9 10*3 1.8-7.8 Blood lymphocytes automated count (number/volume) 4.1 10*3 1.0-4.0 Blood monocytes automated count (number/volume) 1.0 10*3 0.0-1.0 Automated eosinophil count 0.1 10*3/uL 0.0-0.3 Automated blood basophil count (count/volume) 0.0 10*3/uL 0.0-0.1 Complete blood count (CBC) with automated white blood cell (WBC) differential - 12/10/17 12:20 Blood leukocytes automated count (number/volume) 15.9 10*3/uL 4.3-11.0 Blood erythrocytes automated count (number/volume) 4.02 10*6/uL 4.35-5.85 Venous blood hemoglobin measurement (mass/volume) 10.9 g/dL 11.5-16.0 Blood hematocrit (volume fraction) 33 % 35-52 Automated erythrocyte mean corpuscular volume 83 [foz_us] 80-99 Automated erythrocyte mean corpuscular hemoglobin (mass per erythrocyte) 27 pg 25-34 Automated erythrocyte mean corpuscular hemoglobin concentration measurement ( mass/volume) 33 g/dL 32-36 Automated erythrocyte distribution width ratio 15.2 % 10.0-14.5 Automated blood platelet count (count/volume) 506 10*3/uL 130-400 Automated blood platelet mean volume measurement 9.9 [foz_us] 7.4-10.4 Automated blood neutrophils/100 leukocytes 60 % 42-75 Automated blood lymphocytes/100 leukocytes 28 % 12-44 Blood monocytes/100 leukocytes 10 % 0-12 Automated blood eosinophils/100 leukocytes 2 % 0-10 Automated blood basophils/100 leukocytes 0 % 0-10 Blood neutrophils automated count (number/volume) 9.6 10*3 1.8-7.8 Blood lymphocytes automated count (number/volume) 4.4 10*3 1.0-4.0 Blood monocytes automated count (number/volume) 1.6 10*3 0.0-1.0 Automated eosinophil count 0.3 10*3/uL 0.0-0.3 Automated blood basophil count (count/volume) 0.0 10*3/uL 0.0-0.1 Complete blood count (CBC) with automated white blood cell (WBC) differential - 12/11/17 05:21 Blood leukocytes automated count (number/volume) 16.1 10*3/uL 4.3-11.0 Blood erythrocytes automated count (number/volume) 3.92 10*6/uL 4.35-5.85 Venous blood hemoglobin measurement (mass/volume) 10.6 g/dL 11.5-16.0 Blood hematocrit (volume fraction) 33 % 35-52 Automated erythrocyte mean corpuscular volume 83 [foz_us] 80-99 Automated erythrocyte mean corpuscular hemoglobin (mass per erythrocyte) 27 pg 25-34 Automated erythrocyte mean corpuscular hemoglobin concentration measurement ( mass/volume) 33 g/dL 32-36 Automated erythrocyte distribution width ratio 15.2 % 10.0-14.5 Automated blood platelet count (count/volume) 468 10*3/uL 130-400 Automated blood platelet mean volume measurement 10.2 [foz_us] 7.4-10.4 Automated blood neutrophils/100 leukocytes 74 % 42-75 Automated blood lymphocytes/100 leukocytes 17 % 12-44 Blood monocytes/100 leukocytes 8 % 0-12 Automated blood eosinophils/100 leukocytes 2 % 0-10 Automated blood basophils/100 leukocytes 0 % 0-10 Blood neutrophils automated count (number/volume) 11.8 10*3 1.8-7.8 Blood lymphocytes automated count (number/volume) 2.7 10*3 1.0-4.0 Blood monocytes automated count (number/volume) 1.3 10*3 0.0-1.0 Automated eosinophil count 0.3 10*3/uL 0.0-0.3 Automated blood basophil count (count/volume) 0.0 10*3/uL 0.0-0.1 Gram stain microscopy - 12/11/17 18:00 GRAM STAIN RESULT RARE GRAM POSITIVE COCCI NRG Bacteria identification in wound by culture - 12/11/17 18:00 Bacteria identification in wound by culture NG NRG Bacteria identification in isolate by anaerobe culture - 12/11/17 18:52 QUANTITY OF GROWTH Moderate Growth NRG Bacteria identification in isolate by anaerobe culture [id number] NRG Automated blood complete blood count (hemogram) panel - 12/12/17 04:50 Blood leukocytes automated count (number/volume) 13.8 10*3/uL 4.3-11.0 Blood erythrocytes automated count (number/volume) 3.97 10*6/uL 4.35-5.85 Venous blood hemoglobin measurement (mass/volume) 10.7 g/dL 11.5-16.0 Blood hematocrit (volume fraction) 33 % 35-52 Automated erythrocyte mean corpuscular volume 82 [foz_us] 80-99 Automated erythrocyte mean corpuscular hemoglobin (mass per erythrocyte) 27 pg 25-34 Automated erythrocyte mean corpuscular hemoglobin concentration measurement ( mass/volume) 33 g/dL 32-36 Automated erythrocyte distribution width ratio 14.9 % 10.0-14.5 Automated blood platelet count (count/volume) 480 10*3/uL 130-400 Automated blood platelet mean volume measurement 10.2 [foz_us] 7.4-10.4 Automated blood complete blood count (hemogram) panel - 12/13/17 06:49 Blood leukocytes automated count (number/volume) 14.2 10*3/uL 4.3-11.0 Blood erythrocytes automated count (number/volume) 3.69 10*6/uL 4.35-5.85 Venous blood hemoglobin measurement (mass/volume) 9.9 g/dL 11.5-16.0 Blood hematocrit (volume fraction) 31 % 35-52 Automated erythrocyte mean corpuscular volume 83 [foz_us] 80-99 Automated erythrocyte mean corpuscular hemoglobin (mass per erythrocyte) 27 pg 25-34 Automated erythrocyte mean corpuscular hemoglobin concentration measurement ( mass/volume) 32 g/dL 32-36 Automated erythrocyte distribution width ratio 15.1 % 10.0-14.5 Automated blood platelet count (count/volume) 485 10*3/uL 130-400 Automated blood platelet mean volume measurement 10.4 [foz_us] 7.4-10.4 Encounters ACCT No. Visit Date/Time Discharge Status Pt. Type Provider Facility Loc./Unit Complaint [id number] 12/08/2017 11:30:00 12/13/2017 11:10:00 DIS Inpatient TEMO FLANAGAN MD [facility] 4TH DENTAL ABSCESS WITH FACIAL CELLULITIS,FAILURE OF O [id number] 11/30/2017 23:24:00 12/01/2017 00:15:00 DIS Emergency JOE FISHMAN DO [facility] ER TOOTH PAIN [id number] 04/15/2014 06:55:00 04/18/2014 10:40:00 DIS Inpatient MAURICE SERRANO DO [facility] LDRP PREVIOUS SECTION [id number] 04/13/2014 07:20:00 04/13/2014 23:59:59 CLS Outpatient MAURICE SERRANO DO [facility] PREOP PREVIOUS SECTION [id number] 02/15/2014 13:35:00 02/15/2014 23:59:59 CLS Outpatient BRUNA WILD MD [facility] RAD F/U TO COMPLETE SURVEY [id number] 01/03/2014 12:56:00 01/03/2014 23:59:59 CLS Outpatient JET RAZO APRN [facility] RAD DATING, SURVEY [id number] 05/17/2013 11:22:00 05/17/2013 23:59:59 CLS Outpatient [id number] 03/25/2013 21:11:00 03/26/2013 00:35:00 DIS Emergency KLEVER MARTINEZ [facility] ER VAG BLEED @ 13 WEEKS [id number] 11/30/2017 23:43:00 Document Registration [id number] 01/05/2010 21:48:00 Document Registration [id number] 11/20/2007 09:00:00 Document Registration [id number] 12/08/2017 08:40:00 12/08/2017 23:59:59 CLS Outpatient [facility] [id number] 05/26/2014 10:56:00 05/26/2014 23:59:59 CLS Outpatient JET RAZO APRN [id number] 04/13/2014 13:39:00 04/13/2014 23:59:59 CLS Outpatient BRUNA WILD MD [id number] 04/06/2014 13:16:00 04/06/2014 23:59:59 CLS Outpatient BRUNA WILD MD [id number] 03/30/2014 15:02:00 03/30/2014 23:59:59 CLS Outpatient BRUNA WILD MD [id number] 02/23/2014 15:11:00 02/23/2014 23:59:59 CLS Outpatient NICHOLAS KHALIL DO [id number] 12/22/2013 15:31:00 12/22/2013 23:59:59 CLS Outpatient JET RAZO APRN [id number] 12/22/2013 15:31:00 12/22/2013 23:59:59 CLS Outpatient JET RAZO APRN [id number] 12/20/2013 14:16:00 12/20/2013 23:59:59 CLS Outpatient NICHOLAS KHALIL DO [id number] 03/26/2013 16:18:00 Document Registration [id number] 03/15/2013 15:54:00 Document Registration [id number] 02/01/2013 13:04:00 Document Registration [id number] 01/22/2013 10:16:00 Document Registration
[2018-01-01] MEDS ORDERED: CATHETER FLUSH 10 ML SYR IV PRN (15:30)
[2018-01-01 16:23] LABS: BASOPHILS % (AUTO) 0 % (0-10); EOSINOPHILS # (AUTO) 0.1 10^3/uL (0.0-0.3); EOSINOPHILS % (AUTO) 1 % (0-10); HEMATOCRIT 36 % (35-52); HEMOGLOBIN 11.3 G/DL (11.5-16.0); LYMPHOCYTES # (AUTO) 3.2 X 10^3 (1.0-4.0); LYMPHOCYTES % (AUTO) 26 % (12-44); MEAN CORPUSCULAR HEMOGLOBIN 27 PG (25-34); MEAN CORPUSCULAR HGB CONC 32 G/DL (32-36); MEAN CORPUSCULAR VOLUME 84 FL (80-99); MEAN PLATELET VOLUME 11.3 FL (7.4-10.4); MONOCYTES # (AUTO) 1.3 X 10^3 (0.0-1.0); MONOCYTES % (AUTO) 11 % (0-12); NEUTROPHILS # (AUTO) 7.6 X 10^3 (1.8-7.8); NEUTROPHILS % (AUTO) 62 % (42-75); PLATELET COUNT 386 10^3/uL (130-400); RED BLOOD COUNT 4.24 10^6/uL (4.35-5.85); RED CELL DISTRIBUTION WIDTH 15.8 % (10.0-14.5); WHITE BLOOD COUNT 12.2 10^3/uL (4.3-11.0)
[2018-01-01 16:36] LABS: BUN/CREATININE RATIO 6; CALCIUM 8.9 MG/DL (8.5-10.1); CARBON DIOXIDE 25 MMOL/L (21-32); CHLORIDE 105 MMOL/L (98-107); CREATININE SERUM 0.67 MG/DL (0.60-1.30); GFR ESTIMATED > 60; GLUCOSE 81 MG/DL (70-105); POTASSIUM 3.8 MMOL/L (3.6-5.0); SODIUM 138 MMOL/L (135-145)
[2018-01-01] MEDS: DEXAMETHASONE 10 MG/ML (DECADRON) 1 ML VIAL IV SCH ×2 (16:46→23:54)
[2018-01-01] MEDS: CLINDAMYCIN 900 MG/50 ML IVPB 50 ML IV SCH ×2 (16:46→22:08)
[2018-01-01] MEDS ORDERED: IOHEXOL 350 MG/ML 100 ML (OMNIPAQUE 350) VIAL IV ONE (17:15)
[2018-01-01] MEDS ORDERED: NS 100 ML (IVPB) BAG IV ONE (17:15)
--- NOTE | 2018-01-01 17:19 | Progress Note-Standard ---
Standard Progress Note Progress Notes/Assess & Plan Date Seen by Provider: Jan 01, 2018 Time Seen by Provider: 17:00 Progress/Assessment & Plan ENT-Brock patient admitted swollen right jaw getting ct tonight and blood work NPO after midnight will plan on talking to DR Mccormack in AM and decide how to proceed lanette lwrite for hydrocodone liquid for her as well Final Diagnosis recurrent right dental abscess HIREN SIMON MD Jan 01, 2018 5:19 pm
--- NOTE | 2018-01-01 17:43 | Diagnostic Imaging Report ---
PROCEDURE: CT neck soft tissue with contrast. TECHNIQUE: Multiple contiguous axial images were obtained through the neck after the administration of contrast. INDICATION: Cellulitis/pharyngitis. FINDINGS: There is a 3.6 x 1.4 cm abscess adjacent to the right mandibular ramus. This appears to be within the masseter muscle partially and may extend to the skin surface. There is edema of the subcutaneous fat consistent with cellulitis. Parapharyngeal fat planes are well preserved. There is some edema of the pterygoids on the right that at this point is not causing any airway compromise. The neurovascular bundles are unremarkable. IMPRESSION: Large mandibular abscess on the right with myositis and right facial cellulitis. Report was called to patient's nurse, Bren, in the [facility], [place], operated by [facility] at 5:40 p.m., by rashida. Dictated by: Dictated on workstation # [id number]
[2018-01-01 20:00] VITALS: BP 105/59
[2018-01-01] MEDS: CATHETER FLUSH 10 ML SYR IV SCH (22:13)
[2018-01-02] VITALS: BP 124/59
[2018-01-02 04:28] VITALS: BP 115/59
[2018-01-02] MEDS: CATHETER FLUSH 10 ML SYR IV SCH ×3 (05:37→22:57)
[2018-01-02] MEDS: CLINDAMYCIN 900 MG/50 ML IVPB 50 ML IV SCH ×3 (05:38→22:56)
--- NOTE | 2018-01-02 06:16 | Progress Note-Standard ---
Standard Progress Note Progress Notes/Assess & Plan Date Seen by Provider: Jan 02, 2018 Time Seen by Provider: 06:00 Progress/Assessment & Plan ENT-Rosita patient admitted swollen right jaw getting ct tonight and blood work NPO after midnight will plan on talking to DR Mccormack in AM and decide how to proceed lanette lwrite for hydrocodone liquid for her as well ENT-Rosita-4/20-6am subjectively doing alittle better CT-3.6 by 1.5cm abscess rigth masseeteric space trismus about the same will need I/D in [place] probably for later today with mandeep placement will speak with dR Mccormack this am patient is NPO lanette lndave consent for I/D right facial/neck abscess continue cleocin hasnt taken any pain medicine Final Diagnosis Right FAcial/Neck abscess HIREN SIMON MD Jan 02, 2018 6:16 am
[2018-01-02 07:55] VITALS: BP 115/69
[2018-01-02] MEDS: DEXAMETHASONE 10 MG/ML (DECADRON) 1 ML VIAL IV SCH ×3 (08:23→23:44)
[2018-01-02] MEDS ORDERED: AMOX-358 PO (09:28)
[2018-01-02] MEDS ORDERED: LACTATED RINGERS 1,000 ML IV PRN (11:19)
[2018-01-02 12:00] VITALS: BP 118/71
[2018-01-02] MEDS ORDERED: LIDOCAINE/EPI 2% 1:100,00 (XYLOCAINE) 20 ML VIAL ONE (14:06)
[2018-01-02] MEDS ORDERED: NEO/POLY/BAC (NEOSPORIN) OINT 15 GM TUBE ONE (14:07)
[2018-01-02] MEDS ORDERED: ROPIVACAINE 5MG/ML 30ML VIAL ONE (14:21)
[2018-01-02] MEDS ORDERED: LIDOCAINE 4% INJ (XYLOCAINE) 5ML AMP ONE (14:35)
[2018-01-02] MEDS ORDERED: ceFAZolin 1,000 MG (ANCEF) VIAL ONE (14:37)
[2018-01-02] MEDS: LACTATED RINGERS 1,000 ML IV PRN ×2 (15:00→16:16)
[2018-01-02] MEDS ORDERED: HYDROmorphone 2 MG/ML VIAL (DILAUDID) ONE (15:08)
[2018-01-02] MEDS ORDERED: morphine INJ 10 MG/ML 1ML (SYR OR VIAL) ONE (15:09)
[2018-01-02] MEDS ORDERED: ONDANSETRON 4 MG/2 ML (SDV) Z0FRAN ONE (15:09)
[2018-01-02] MEDS: morphine INJ 10 MG/ML 1ML (SYR OR VIAL) IVP PRN ×2 (16:10→16:16)
[2018-01-02] MEDS ORDERED: ONDANSETRON 4 MG/2 ML (SDV) Z0FRAN IVP PRN (16:15)
[2018-01-02] MEDS ORDERED: PROMETHAZINE INJ 25 MG/ML (PHENERGAN) AMP IVP PRN (16:15)
--- NOTE | 2018-01-02 16:15 | Anesthesia-General Post-Op ---
General Patient Condition Mental Status/LOC: Same as Preop Cardiovascular: Satisfactory Nausea/Vomiting: Absent Respiratory: Satisfactory Pain: Controlled Complications: Absent Post Op Complications Complications None Follow Up Care/Instructions Patient Instructions None needed. Anesthesia/Patient Condition Patient Condition Patient is doing well, no complaints, stable vital signs, no apparent adverse anesthesia problems. No complications reported per nursing. CHELSEY VIGIL CRNA Jan 02, 2018 16:15
[2018-01-02] MEDS: HYDROmorphone 2 MG/ML VIAL (DILAUDID) IVP PRN ×2 (16:22→16:32)
[2018-01-02] MEDS: HYDROcodone/APAP 7.5MG-325 MG/15 ML (LORTAB) UDC PO PRN ×2 (17:45→21:29)
[2018-01-02 18:06] VITALS: BP 124/64
[2018-01-02] MEDS ORDERED: HYDROmorphone 2 MG/ML VIAL (DILAUDID) IVP PRN (18:30)
[2018-01-02 20:40] VITALS: BP 108/72
[2018-01-03 00:14] VITALS: BP 97/60
[2018-01-03 04:00] VITALS: BP 96/62
[2018-01-03] MEDS: HYDROcodone/APAP 7.5MG-325 MG/15 ML (LORTAB) UDC PO PRN ×4 (04:00→23:09)
[2018-01-03] MEDS: CLINDAMYCIN 900 MG/50 ML IVPB 50 ML IV SCH ×3 (05:18→21:58)
[2018-01-03] MEDS: CATHETER FLUSH 10 ML SYR IV SCH ×3 (05:18→21:58)
[2018-01-03 08:00] VITALS: BP 110/62
[2018-01-03] MEDS: DEXAMETHASONE 10 MG/ML (DECADRON) 1 ML VIAL IV SCH ×3 (08:09→23:09)
[2018-01-03 12:00] VITALS: BP 115/59
[2018-01-03 16:59] VITALS: BP 126/64
[2018-01-03 19:51] VITALS: BP 132/82
[2018-01-03] MEDS: ONDANSETRON 4 MG/2 ML (SDV) Z0FRAN IVP PRN (23:09)
[2018-01-04 00:20] VITALS: BP 114/62
[2018-01-04 04:00] VITALS: BP 91/55
[2018-01-04 04:52] LABS: BASOPHILS % (AUTO) 0 % (0-10); EOSINOPHILS % (AUTO) 0 % (0-10); HEMATOCRIT 33 % (35-52); HEMOGLOBIN 10.7 G/DL (11.5-16.0); LYMPHOCYTES # (AUTO) 1.4 X 10^3 (1.0-4.0); LYMPHOCYTES % (AUTO) 10 % (12-44); MEAN CORPUSCULAR HEMOGLOBIN 27 PG (25-34); MEAN CORPUSCULAR HGB CONC 32 G/DL (32-36); MEAN CORPUSCULAR VOLUME 84 FL (80-99); MEAN PLATELET VOLUME 11.4 FL (7.4-10.4); MONOCYTES # (AUTO) 0.7 X 10^3 (0.0-1.0); MONOCYTES % (AUTO) 5 % (0-12); NEUTROPHILS # (AUTO) 12.5 X 10^3 (1.8-7.8); NEUTROPHILS % (AUTO) 86 % (42-75); PLATELET COUNT 475 10^3/uL (130-400); RED BLOOD COUNT 3.97 10^6/uL (4.35-5.85); RED CELL DISTRIBUTION WIDTH 16.1 % (10.0-14.5); WHITE BLOOD COUNT 14.6 10^3/uL (4.3-11.0)
[2018-01-04 05:08] LABS: ANISOCYTOSIS SLIGHT; LYMPHOCYTES % (MANUAL) 15 %; MONOCYTES % (MANUAL) 2 %; NEUTROPHILS % (MANUAL) 83 %
[2018-01-04] MEDS: HYDROcodone/APAP 7.5MG-325 MG/15 ML (LORTAB) UDC PO PRN (05:25)
[2018-01-04] MEDS: CLINDAMYCIN 900 MG/50 ML IVPB 50 ML IV SCH (05:25)
[2018-01-04] MEDS: CATHETER FLUSH 10 ML SYR IV SCH (05:25)
[2018-01-04 08:00] VITALS: BP 108/64
[2018-01-04] MEDS: DEXAMETHASONE 10 MG/ML (DECADRON) 1 ML VIAL IV SCH (08:25)
[2018-01-04] MEDS: ONDANSETRON 4 MG/2 ML (SDV) Z0FRAN IVP PRN (08:27)
[2018-01-04 12:00] VITALS: BP 113/66
[2018-01-04] MEDS ORDERED: HYDR-757 PO (12:18)
[2018-01-04] MEDS ORDERED: CLIN300C3 PO (12:18)
[2018-01-04 13:41] VITALS: BP 113/66
--- NOTE | 2018-01-14 14:39 | DISCHARGE SUMMARY ---
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 ADMITTING DIAGNOSIS: Right buccal space abscess. POSTOPERATIVE DIAGNOSIS: Right buccal space abscess. PROCEDURE PERFORMED: Procedure performed while she was an admitted patient with incision and drainage extraorally in the operating room of the right buccal space abscess. ADMITTING DOCTOR: Dr. Becker as I was out of town and I took over care on the Friday01/02/2018. HISTORY OF PRESENT ILLNESS: The patient had approximately a 3-week period in which case she has had a right buccal space abscess, which has only partially up until recently responded to therapy. She originally had been admitted back on 12/08 in which case she was taken emergently to the operating room and drained. She progressed for a day and then at that point ceased to progress and actually her abscess cavity increased in size and we then again drained her both extraorally and intraorally. At this point, her white count went from 24 down to 14. She became afebrile and generally showed marked improvement. At this point, we had placed a drain and after continuing flushing for 24 hours, this drain was removed. Then, the following day, she was discharged with followup in my office on the following day to continue to drain her right buccal space abscess. Originally showed marked improvement at this point she had a followup in 3 days. She did not keep her appointment and subsequently did not come in for the remainder of the week after trying to contact her. Then, on 01/04, she sought care in our office. I was out of town. Dr. Becker graciously evaluated her and admitted her. At this point, we then required to go in and perform another extraoral drainage of the right buccal space abscess. Again, we were able to get adequate drainage, placed a drain, left the drain for 36 hours. Her white count, which has been up in the high teens dropped, as well as her febrile status to the point that she was essentially afebrile. Upon admission, she could only open approximately 8 to 10 mm with her interincisal opening and had continued trismus. Subsequently after 36 hours of intravenous antibiotic therapy consisting of clindamycin, we were then able to continue to have patent drainage and then removed the drain approximately on Friday morning when she was discharged. During the case of Friday, she had somewhat of an emotional event in which she had threatened suicide. We had scheduled a suicide protocol. At one point, she was going to leave [facility], but fortunately, she stayed in the hospital. We were able to complete our treatment and remove the drain while she was still an inpatient. At this point, she was then discharged Friday morning, given antibiotics, clindamycin as well as [place] for pain and instructed to follow up in my office the following day. We have since also seen her in our office and she has progressed to the point that it appears that we have resolved this condition, but at the present time she is still going to be followed by our office at this point. Job ID: [id number] DocumentID: [id number] Dictated Date: 01/14/2018 11:41:51 Tobacco Stemmer Date: 01/14/2018 14:23:24 Dictated By: PENNY SANCHEZ DDS
--- NOTE | 2018-01-15 09:12 | OPERATIVE REPORT ---
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 SURGEON: Penny Sanchez DDS EVP OPERATIONS: [facility] ____. PREOPERATIVE DIAGNOSIS: Right buccal space abscess. POSTOPERATIVE DIAGNOSIS: Right buccal space abscess. PROCEDURE: Incision and drainage of right buccal space abscess via extraoral route. ANESTHESIA: Laryngeal mask anesthesia. ESTIMATED BLOOD LOSS: 150 mL. FLUIDS: Approximately 1 liter crystalloid. Instrument, needle and sponge count were correct x2 and culture specimens were sent. HISTORY OF PRESENT ILLNESS AND INDICATIONS FOR PROCEDURE: The patient is a 27-year-old essentially healthy white female who has presented on 2 previous instances with a right buccal space abscess. Had a long, involved story about when she was originally admitted on 12/08/[address] Regalado out of the ER with a right buccal space abscess, trismus, a white count of approximately 24,000. She had been seen in approximately 8 days earlier and placed on oral antibiotics and referred to [facility]. She continued oral antibiotics; however, she did not progress, but then represented to the ER on 12/08/2017 and then was directly admitted. After evaluating her, it was determined she had carious teeth numbers 32, 30 and 17 and these were extracted and we drained her abscess around tooth #32 and drained purulent drainage intraorally in the buccal space abscess. Tooth #17 was also grossly decayed and shortly after this almost certainly would have presented with the same symptoms, so it was removed at the same time. The patient progressed for a while and then ultimately after having her white count dropped to 14, showed no further signs of improvement and then she was taken and we performed an extraoral drainage, placed a drain, irrigated and she was discharged on or about 12/10. Subsequently, she followed up in our office. She kept her first appointment; however, missed her second appointment approximately 3 days later. We placed her on oral antibiotics and had given her instructions to continue to drain the abscess as best she could extraorally and at this point then she was asked to follow up and did not return. However, on , she presented to my office and then as I was out of town I referred her to Dr. Becker, who evaluated her, both clinically and CT and determined she had indeed redeveloped a right buccal space abscess and admitted her to do a CT and showed approximately 3 x 1.5 cm abscess lateral to the mandibular ramus and starting to approach the posterior aspect of the ramus. Subsequently, we then admitted her to the operating room for drainage. DESCRIPTION OF PROCEDURE: The patient was taken to the operating room and placed on the operating table. Anesthesia was induced via laryngeal mask anesthesia. Once this was secured and appropriate monitors were placed, left the room, scrubbed, returned, donned, sterile gowns and gloves and prepped and draped the patient in usual standard sterile fashion. I dissected through her previous incision and extended it slightly approximately 5 mm, both in the superior and inferior aspect. I was able to identify the abscess cavity and drained approximately 20 mL of purulent material. This was also cultured. At this point, we irrigated with saline and hydrogen peroxide mixture, approximately two-third saline and one-third hydrogen peroxide extensively upwards of 100 mL. We also placed a red rubber catheter and this was also used to allow us to irrigate down to the base of the abscess cavity. After this, we did another exam under anesthesia. I could see no lingual, ____ or pharyngeal involvement. There is no floor of the mouth involved at this point either. Then, I continued to make a minor incision and drain it intraorally as well to gain us the best access to have patent drainage. This completed our procedure. We placed a throat pack, this was removed. I sewed the drain in with 3-0 silk suture. She was emerged from her general anesthetic, extubated in the operating room and transported to the recovery room in stable vital signs, breathing spontaneously with pulse ox of 99%. Job ID: [id number] DocumentID: [id number] Dictated Date: 01/14/2018 11:32:23 Sales Representative [employer] Date: 01/14/2018 20:49:10 Dictated By: PENNY SANCHEZ DDS
== END 2018-01-04 12:50 | disposition home or self-care (01) | DRG 158 ==
LOC: EEVIPCON 14:43 → 4TH 14:43
PROVIDERS: ADMIT Otolaryngology Otolaryngology/Facial Plastic Surgery; ATTEND Otolaryngology Otolaryngology/Facial Plastic Surgery
PROC: 0C943ZZ Drainage of Buccal Mucosa, Percutaneous Approach (ICD-10-PCS; principal; 2018-01-02 14:54)
DX: K04.7 Periapical abscess without sinus (principal); L02.01 Cutaneous abscess of face; R25.2 Cramp and spasm; R45.851 Suicidal ideations
CPT/HCPCS: 36415; 70491; 80048; 84703; 85007; 85025; 85027; 87070; 87075; 87081; 87205

== ENCOUNTER 2018-10-15 22:55 | Emergency (ER) | payer SELFPAY ==
[~2018-10-15] VITALS: Ht 170.2 cm; Wt 88.5 kg
[~2018-10-15 22:55] MED LIST changes: +AMOX-358 PO; +CLIN300C3 PO; +HYDR-4226 PO; -HYDR-757 PO
--- OUTSIDE RECORDS SUMMARY | 2018-10-15 23:00 | XMS REPORT ---
Author Author PANCHITO TEMO [facility] Address [address] [place] [address] Care Team Providers Care Waiter/Waitress Dining Car Name Role Phone TEMO FLANAGAN Unavailable PROBLEMS Type Condition ICD9-CM Code IRS51-WG Code Onset Dates Condition Status SNOMED Code Problem DTAP TEST V06.1 Active Problem Insufficient care V23.7 Active 8328370734625 Problem Need for prophylactic vaccination and inoculation against rubella alone V04.3 Active 397880460 Problem Maternal drug dependence complicating , childbirth, or the puerperium, unspecified as to episode of care 648.30 Active Problem Dysfunction of Eustachian tube 381.81 Active 25350876 Problem Previous delivery, unspecified as to episode of care or not applicable 654.20 Active 777249032 Problem Lumbago 724.2 Active 031353564 Problem Unspecified spontaneous without mention of complication 634.90 Active 89699300 Problem Tobacco use disorder complicating , childbirth, or the puerperium, unspecified as to episode of care or not applicable 649.00 Active 933005277942647 Problem Unspecified contraceptive management V25.9 Active 570299761 Problem General counseling for prescription of oral contraceptives V25.01 Active 852038622711337 Problem Screening for malignant neoplasm of the cervix V76.2 Active 937960358 Problem Routine follow-up V24.2 Active 005250982 Problem Screening examination for venereal disease V74.5 Active 572310570 Problem examination or test, positive result V72.42 Active 844233537 ALLERGIES No Information ENCOUNTERS Encounter Location Date Diagnosis [facility] [address] [id number], [place] [address] Dec, [facility] [address] [id number], [place] [address] Nov, [facility] [address] [id number] Nov, Dental examination Z01.20 [facility] [address] [id number] [id number] 17 Feb, 2016 [facility] caries K02.9 [facility] [address] [id number][place] [id number] 07 Feb, 2016 Dental examination Z01.20 [facility] [address] [id number], [place] [address] 14 Dec, 2014 [facility] [address] [id number] Dec, [facility] [address] [id number], [place] [address] 11 May, 2014 [facility] [address] [id number], [place] [address] May, [facility] [address] [id number], [place] [address] Mar, [facility] [address] [id number], [place] [address] Mar, [facility] [address] [id number], [place] [address] Mar, [facility] [address] [id number], [place] [address] Mar, [facility] [place] [facility] [address] [id number], [place] [address] Mar, [facility] [place] [facility] [address] [id number], [place] [address] Mar, [facility] [place] [facility] [address] [id number][place] [address] Mar, [facility] [place] [facility] [address] [id number][place] Mar, [facility] [place] [facility] [address] [id number], [place] [address] Mar, [facility] [place] [facility] [address] [id number] [place] [address] Mar, [facility] [place] [facility] [address] [id number] [place] [address] Mar, [facility] [place] [facility] [address] [id number] [place] [address] Feb, [facility] [place] [facility] [address] [id number] [place] [address] Feb, [facility] [place] [facility] [address] [id number] [place] [address] Feb, [facility] [place] [facility] [address] [id number] [place] [address] Feb, [facility] [place] [facility] [address] [id number] [place] [address] January, [facility] [place] [facility] [address] [id number] [place] [address] January, [facility] [place] [facility] [address] [id number] [place] [address] January, [facility] [place] [facility] [address] [id number] [place] [address] January, [facility] [place] [facility] [address] [id number] [place] [address] Dec, [facility] [place] [facility] [address] [id number] [place] [address] Dec, [facility] [place] [facility] [address] [id number] [place] [address] Dec, [facility] [place] [facility] [address] [id number] [place] [address] Dec, [facility] [place] [facility] [address] [id number] [place] [address] Dec, [facility] [place] [facility] [address] [id number] [place] [address] Dec, [facility] [place] [facility] [address] [id number] [place] [address] Dec, [facility] [place] [facility] [address] [id number] [place] [address] Dec, [facility] [place] [facility] [address] [id number] [place] [address] Dec, [facility] [place] [facility] [address] [id number] [place] [address] Dec, [facility] [place] [facility] [address] [id number] [place] [address] Dec, [facility] [place] [facility] [address] [id number] [place] [address] Dec, [facility] [place] [facility] [address] [id number] [place] [address] Dec, [facility] [place] [facility] [address] [id number] [place] [address] Dec, [facility] [place] [facility] [address] [id number] [place] [address] Dec, [facility] [place] [facility] [address] [id number] [place] [address] Dec, [facility] [place] [facility] [address] [id number] [place] [address] Dec, [facility] [place] [facility] [address] [id number] [place] [address] 18 Mar, 2013 [facility] [place] [facility] [address] [id number] [place] [address] 16 Mar, 2013 [facility] [place] [facility] [address] [id number] [place] [address] 12 Mar, 2013 [facility] [place] [facility] [address] [id number] [place] [address] Mar, [facility] [address] [facility] [id number], [place] [address] Mar, [facility] [address] [facility] [id number], [place] [address] January, [facility] [address], [place] [address] January, [facility] [address] [facility] [id number], [place] [address] Sep, [facility] [address] [facility] [id number], [place] [address] Sep, [facility] [address], [place] [address] Sep, [facility] [address], [place] [address] Jul, [facility] [address], [place] [address] Jul, [facility] [address], [place] [address] Jun, [facility] [address], [place] [address] May, [facility] [id number], [place] [address] January, IMMUNIZATIONS No Known Immunizations SOCIAL HISTORY Never Assessed REASON FOR VISIT hospital follow up call PLAN OF CARE VITAL SIGNS MEDICATIONS Unknown Medications RESULTS No Results PROCEDURES No Known procedures INSTRUCTIONS MEDICATIONS ADMINISTERED No Known Medications MEDICAL (GENERAL) HISTORY Type Description Date Surgical History Tubes Tie 05/29
--- OUTSIDE RECORDS SUMMARY | 2018-10-15 23:00 | XMS REPORT ---
Author Author ELIDABETTYEJUNG [facility] Address Unknown Care Team Providers Care Thermal Cutter Hand Name Role Phone JUNG CAMARENA Unavailable PROBLEMS Type Condition ICD9-CM Code VQP73-MV Code Onset Dates Condition Status SNOMED Code Problem DTAP TEST V06.1 Active Problem Insufficient care V23.7 Active 0635216667977 Problem Need for prophylactic vaccination and inoculation against rubella alone V04.3 Active 090450735 Problem Maternal drug dependence complicating , childbirth, or the puerperium, unspecified as to episode of care 648.30 Active Problem Dysfunction of Eustachian tube 381.81 Active 77183355 Problem Previous delivery, unspecified as to episode of care or not applicable 654.20 Active 083853547 Problem Lumbago 724.2 Active 488301098 Problem Unspecified spontaneous without mention of complication 634.90 Active 01312967 Problem Tobacco use disorder complicating , childbirth, or the puerperium, unspecified as to episode of care or not applicable 649.00 Active 344524501560445 Problem Unspecified contraceptive management V25.9 Active 076327321 Problem General counseling for prescription of oral contraceptives V25.01 Active 284442199557541 Problem Screening for malignant neoplasm of the cervix V76.2 Active 838515930 Problem Routine follow-up V24.2 Active 117886644 Problem Screening examination for venereal disease V74.5 Active 820836334 Problem examination or test, positive result V72.42 Active 446888669 ALLERGIES No Known Allergies ENCOUNTERS Encounter Location Date Diagnosis [facility] [id number] [address] Dec, [facility] [address] [id number] [address] Nov, [facility] [address] [id number] [id number] Nov, Dental examination Z01.20 [facility] [address] [id number] [id number] 17 Feb, 2016 Dental caries K02.9 [facility] [address] [id number][place] [address] 07 Feb, 2016 [facility] examination Z01.20 [facility] [address] [id number] [place] [address] 14 Dec, 2014 [facility] [address] [id number] [place] [address] Dec, [facility] [address] [id number] [place] [address] May, [facility] [address] [id number] [place] [address] May, [facility] [address] [id number] [place] [address] Mar, [facility] [address] [id number], [place] [address] Mar, [facility] [address] [id number] [place] [address] Mar, [facility] [address] [id number] [place] [address] Mar, [facility] [address] [id number] [place] [address] Mar, [facility] [address] [id number], [place] [address] Mar, [facility] [address] [id number] [place] [address] Mar, [facility] [address] [id number] [place] [address] Mar, 2013 [facility] [address] [id number] Mar, [facility] [place] [facility] [address] [id number] [place] [address]- [address] Mar, [facility] [place] [facility] [address] [id number] [place] [address] Mar, [facility] [place] [facility] [address] [id number] [place] [address]- [address] Feb, [facility] [place] [facility] [address] [id number] [place] [address]- 74[address] Feb, [facility] [place] [facility] [address] [id number] [place] [address]- [address] Feb, [facility] [place] [facility] [address] [id number] [place] [address]- 0616 Feb, [facility] [place] [facility] [address] [id number] [place] [address] 280[address] January, [facility] [place] [facility] [address] [id number] [place] [address]- 8632 January, [facility] [place] [facility] [address] [id number] [place] [address]- 1427 January, [facility] [place] [facility] [address] [id number] [place] [address] January, [facility] [place] [facility] [address] [id number] [place] [address]- 73[address] Dec, [facility] [place] [facility] [address] [id number] [place] [address]- 3595 Dec, [facility] [place] [facility] [address] [id number] [place] [address]- 5315 Dec, [facility] [place] [facility] [address] [id number] [place] [address]- 5868 Dec, [facility] [place] [facility] [address] [id number] [place] [address]- 2934 Dec, [facility] [place] [facility] [address] [id number] [place] [address]- 9478 Dec, [facility] [place] [facility] [address] [id number] [place] [address]- 0780 Dec, [facility] [place] [facility] [address] [id number] [place] [address]- 8193 Dec, [facility] [place] [facility] [address] [id number] [place] [address]- [address] Dec, [facility] [place] [facility] [address] [id number] [place] [address]- [address] Dec, [facility] [place] [facility] [address] [id number] [place] [address]- [address]261 Dec, [facility] [place] [facility] [address] [id number] [place] [address]- 0914 Dec, [facility] [place] [facility] [address] [id number] [place] [address]- [address]86 Dec, [facility] [place] [facility] [address] [id number] [place] [address]- 1625 Dec, [facility] [place] [facility] [address] [id number] [place] [address]- 9973 Dec, [facility] [place] [facility] [address] [id number] [place] [address]- 2013 Dec, [facility] [place] [facility] [address] [id number] [place] [address]- 4[address] Dec, [facility] [place] [facility] [address] [id number] [place] [address]- 99[address] Mar, [facility] [place] [facility] [address] [id number] [place] [address]- [address] 16 Mar, 2013 [facility] [place] [facility] [address] [id number] [place] [address]- [address] 12 Mar, 2013 [facility] [place] [facility] [address] [id number] [place] [address]- [address] 10 Mar, 2013 [facility] [place] [facility] [address] [id number], [place] [address] Mar, [facility] [address] [id number], [place] [address] January, [facility] [address]005[address], [place] [address] January, [facility] [address], [place] [address] Sep, [facility] [address], [place] [address] Sep, [facility] [address], [place] [address] Sep, [facility] [address], [place] [address] Jul, [facility] [address], [place] [address] Jul, [facility] [address], [place] [address] Jun, [facility] [address], [place] [address] May, [facility] [address] [id number], [place] [address] January, IMMUNIZATIONS No Known Immunizations SOCIAL HISTORY Never Assessed REASON FOR VISIT walk in facial swelling PLAN OF CARE Activity Details Follow Up prn Reason:ALIX VITAL SIGNS Blood pressure systolic 138 mmHg 2017-12-02 Blood pressure diastolic 96 mmHg 2017-12-02 MEDICATIONS Medication Instructions Dosage Frequency Start Date End Date Duration Status Tramadol HCl Active Naproxen Active Lidocaine HCl Active Flagyl 500 mg 1 tablet by Oral route 2 times per day for 7 days Dec Not-Taking Clindamycin HCl Active Amoxicillin 500 MG Orally Three times a day 1 capsule 8h 7 days Active Keflex 500 mg take 1 capsule (500 mg) by oral route every 6 hours for 7 days Sep, Not-Taking Antipyrine-Benzocaine 5.4-1.4 % 4 drop by Otic route 1 time per hour for 5 days PRN ear pain January, Not-Taking Clotrimazole 1 % 1 appful by Vaginal route 1 time per day for 7 day(s) Dec, Not-Taking RESULTS No Results PROCEDURES Procedure Date Ordered Result Body Site LTD ORAL EVALUATION - PROBLEM FOCUS December 02, 2017 PANORAMIC FILM SEE ALSO CODE [id number] December 02, 2017 INSTRUCTIONS MEDICATIONS ADMINISTERED No Known Medications MEDICAL (GENERAL) HISTORY Type Description Date Surgical History Tubes Tie 05/29
--- OUTSIDE RECORDS SUMMARY | 2018-10-15 23:00 | XMS REPORT ---
Author Author NICHOLAS KHALIL [facility] Address [address] [place] [address] Care Team Providers Care Water Softener Servicer And Installer Name Role Phone NICHOLAS KHALIL Unavailable PROBLEMS Type Condition ICD9-CM Code ASM48-PV Code Onset Dates Condition Status SNOMED Code Problem DTAP TEST V06.1 Active Problem Insufficient care V23.7 Active 2554162276272 Problem Need for prophylactic vaccination and inoculation against rubella alone V04.3 Active 423706069 Problem Maternal drug dependence complicating , childbirth, or the puerperium, unspecified as to episode of care 648.30 Active Problem Dysfunction of Eustachian tube 381.81 Active 94848718 Problem Previous delivery, unspecified as to episode of care or not applicable 654.20 Active 436830227 Problem Lumbago 724.2 Active 263045458 Problem Unspecified spontaneous without mention of complication 634.90 Active 35926805 Problem Tobacco use disorder complicating , childbirth, or the puerperium, unspecified as to episode of care or not applicable 649.00 Active 791171374527765 Problem Unspecified contraceptive management V25.9 Active 603676253 Problem General counseling for prescription of oral contraceptives V25.01 Active 549470202384901 Problem Screening for malignant neoplasm of the cervix V76.2 Active 393662097 Problem Routine follow-up V24.2 Active 027505909 Problem Screening examination for venereal disease V74.5 Active 671488187 Problem examination or test, positive result V72.42 Active 077223032 ALLERGIES No Information ENCOUNTERS Encounter Location Date Diagnosis [facility] [address], [place] [address] Dec, [facility] [id number], [place] [address] Nov, [facility] [address] [id number] Nov, [facility] Z01.20 [facility] [address] [id number] [id number] 17 Feb, 2016 Dental caries K02.9 [facility] [address] [id number] [id number] Feb, Dental examination Z01.20 [facility] [address] [id number] [place] [address] 14 Dec, 2014 [facility] [address] [id number] [place] 13 Dec, 2014 [facility] [address] [id number] [place] [address] May, [facility] [address] [id number] [place] May, [facility] [address] [id number] [place] [address] Mar, [facility] [address] [id number] [place] [address] Mar, [facility] [address] [id number] [place] [address] Mar, [facility] [address] [id number] [place] [address] Mar, [facility] [address] [id number], [place] [address] Mar, [facility] [address] [id number] [place] [address] Mar, [facility] [place] [facility] [address] [id number] [place] [id number] Mar, [facility] [place] [facility] [address] [id number] [place] [address] Mar, [facility] [place] [facility] [address] [id number], [place] [address] Mar, [facility] [place] [facility] [address] [id number] [place] [address] Mar, [facility] [place] [facility] [address] [id number] [place] [address] Mar, [facility] [place] [facility] [address] [id number] [place] [address] Feb, [facility] [place] [facility] [address] [id number] [place] [address] Feb, [facility] [place] [facility] [address] [id number] [place] [address] Feb, [facility] [place] [facility] [address] [id number] [place] [address] Feb, [facility] [place] [facility] [address] [id number] [place] [address] January, [facility] [place] [facility] [address] [id number] [place] [address] January, [facility] [place] [facility] [address] [id number] [place] [address] January, [facility] [place] [facility] [address] [id number] [place] [address] January, [facility] [place] [facility] [address] [id number] [place] [address] Dec, [facility] [place] [facility] [address] [id number] [place] [address] Dec, [facility] [place] [facility] [address] [id number] [place] [address] Dec, [facility] [place] [facility] [address] [id number] [place] [address] Dec, [facility] [place] [facility] [address] [id number] [place] [address] Dec, [facility] [place] [facility] [address] [id number] [place] [address] 23 Dec, 2013 [facility] [address] [id number] [place] [address] Dec, [facility] [address] [id number] [place] [address] Dec, [facility] [address] [id number] [place] [address] Dec, [facility] [address] [id number] [place] [address] Dec, [facility] [address] [id number] [place] [address] Dec, [facility] [address] [id number] [place] [address] Dec, [facility] [address] [id number] [place] [address] Dec, [facility] [address] [id number] [place] [address] Dec, [facility] [address] [id number] [place] [address] Dec, [facility] [address] [id number] [place] [address] Dec, [facility] [address] [id number] [place] [address] Dec, [facility] [address] [id number] [place] [address] 18 Mar, 2013 [facility] [place] [facility] [address] [id number] [place] [address] 16 Mar, 2013 [facility] [place] [facility] [address] [id number] [place] [address] 12 Mar, 2013 [facility] [address] [id number] [place] [address] Mar, [facility] [address] [facility] [id number], [place] [address] Mar, [facility] [address] [facility] [id number], [place] [address] January, [facility] [address] [facility] [id number], [place] [address] January, [facility] [address] [facility] [id number], [place] [address] Sep, [facility] [address] [facility] [id number], [place] [address] Sep, [facility] [address] [facility] [id number], [place] [address] Sep, [facility] [address], [place] [address] Jul, [facility] [address], [place] [address] Jul, [facility] [id number], [place] [address] Jun, [facility] [id number], [place] [address] May, [facility] [address] [id number], [place] [address] January, IMMUNIZATIONS No Known Immunizations SOCIAL HISTORY Never Assessed REASON FOR VISIT Triage JStrasserRN PLAN OF CARE VITAL SIGNS MEDICATIONS Unknown Medications RESULTS No Results PROCEDURES No Known procedures INSTRUCTIONS MEDICATIONS ADMINISTERED No Known Medications MEDICAL (GENERAL) HISTORY Type Description Date Surgical History Tubes Tie 05/29
--- OUTSIDE RECORDS SUMMARY | 2018-10-15 23:02 | XMS REPORT | Continuity of Care Document ---
Author Author [facility] Address Unknown Phone Unavailable Allergies Active Description Code Type Severity Reaction Onset Reported/Identified Relationship to Patient Clinical Status Yes metronidazole [id number] Drug Allergy Unknown N/A 12/04/2009 Yes metronidazole [id number] Drug Allergy Unknown RASH 12/08/2017 Medications There is no data. Problems Date Dx Coded Attending Type Code Diagnosis Diagnosed By 10/13/2007 Ot 625.9 10/13/2007 Ot 646.83 11/21/2007 Ot 644.03 11/27/2007 Ot 625.9 11/27/2007 Ot 646.83 11/27/2009 Ot 644.03 THRT RITA LABOR-ANTEPART 12/06/2009 Ot 641.13 PLACEN PREV HEM-ANTEPART 12/06/2009 Ot 644.03 THRT RITA LABOR-ANTEPART 01/22/2011 654.20 Previous C- section 01/22/2011 V22.1 , Normal Other 01/22/2011 654.20 Previous C- section 01/22/2011 V22.1 , Normal Other 01/22/2011 654.20 Previous C- section 01/22/2011 V22.1 , Normal Other 01/22/2011 654.20 Previous C- section 01/22/2011 V22.1 , Normal Other 01/22/2011 NICHOLAS KHALIL DO 654.20 Previous 01/22/2011 NICHOLAS KHALIL DO V22.1 , Normal Other 01/22/2011 [employer], JET A 654.20 Previous 01/22/2011 [employer]ER, JET A V22.1 , Normal Other 01/22/2011 [employer]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, 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 654.20 Previous 01/22/2011 [employer] ENGINEER, JET A V22.1 , Normal Other 01/22/2011 NCIHOLAS KHALIL DO 654.20 Previous 01/22/2011 NICHOLAS KHALIL DO V22.1 , Normal Other 01/22/2011 BRUNA WILD MD 654.20 Previous 01/22/2011 BRUNA WILD MD V22.1 , Normal Other 01/22/2011 BRUNA WILD MD 654.20 Previous 01/22/2011 BRUNA WILD MD V22.1 , Normal Other 01/22/2011 BRUNA WILD MD [...] Non-immune - Need For Vaccination 02/13/2011 V72.31 Clinical Investigator Exam, Routine 02/13/2011 V74.5 Std Screen 02/13/2011 V72.31 Clinical Investigator Exam, Routine 02/13/2011 V74.5 Std Screen 02/13/2011 V72.31 Clinical Investigator Exam, Routine 02/13/2011 V74.5 Std Screen 02/13/2011 V72.31 Clinical Investigator Exam, Routine 02/13/2011 V74.5 Std Screen 02/13/2011 NICHOLAS KHALIL DO V72.31 Clinical Investigator Exam, Routine 02/13/2011 NICHOLAS KHALIL DO V74.5 Std Screen 02/13/2011 JET RAZO APRN A V72.31 Clinical Investigator Exam, Routine 02/13/2011 JET RAZO APRN A V74.5 Std Screen 02/13/2011 JET RAZO APRN V72.31 Clinical Investigator Exam, Routine 02/13/2011 JET RAZO APRN V74.5 Std Screen 02/13/2011 NICHOLAS KHALIL DO V72.31 Clinical Investigator Exam, Routine 02/13/2011 NICHOLAS KHALIL DO V74.5 Std Screen 02/13/2011 JUNITO STOVER, BRUNA Silver V72.31 Clinical Investigator Exam, Routine 02/13/2011 JUNITO STOVER, BRUNA Silver V74.5 Std Screen 02/13/2011 JUNITO STOVER, BRUNA Silver V72.31 Clinical Investigator Exam, Routine 02/13/2011 JUNITO STOVER, BRUNA Silver V74.5 Std Screen 02/13/2011 JUNITO STOVER, BRUNA Silver V72.31 Clinical Investigator Exam, Routine 02/13/2011 JUNITO STOVER, BRUNA Silver V74.5 Std Screen 02/13/2011 JET RAZO APRN V72.31 Clinical Investigator Exam, Routine 02/13/2011 JET RAZO APRN A V74.5 Std Screen 04/01/2011 Ot 646.83 PREG COMPL NEC-ANTEPART 04/01/2011 Ot 785.1 PALPITATIONS 04/01/2011 Ot 643.03 MILD HYPEREMESIS-ANTEPAR 05/27/2011 V04.81 Flu Shot 05/27/2011 V04.81 Flu Shot 05/27/2011 V04.81 Flu Shot 05/27/2011 V04.81 Flu Shot 05/27/2011 NICHOLAS KHALIL DO V04.81 Flu Shot 05/27/2011 JET RAZO APRN V04.81 Flu Shot 05/27/2011 JET RAZO APRN A V04.81 Flu Shot 05/27/2011 NICHOLAS KHALIL DO V04.81 Flu Shot 05/27/2011 BRUNA WILD MD V04.81 Flu Shot 05/27/2011 BRUNA WILD MD V04.81 Flu Shot 05/27/2011 JUNITO STOVER, BRUNA Silver V04.81 Flu Shot 05/27/2011 JET RAZO APRN A V04.81 Flu Shot 07/26/2011 Ot 285.1 AC POSTHEMORRHAG ANEMIA 07/26/2011 Ot 285.9 ANEMIA NOS 07/26/2011 Ot 648.21 ANEMIA- DELIVERED 07/26/2011 Ot 648.22 ANEMIA- DELIVERED W P/P 07/26/2011 Ot 649.01 TOBACCO USE DISORDER COMP PREG/CHILDBIRT 07/26/2011 Ot 654.21 PREV DELIVRY W/ OR W/O MENT ANT 07/26/2011 Ot V06.4 VAC-MEASLE- MUMPS-RUBELLA 07/26/2011 Ot V27.0 DELIVER- SINGLE LIVEBORN 10/07/2011 V24.2 visit for: exam 10/07/2011 V25.01 Oral Contraceptives 10/07/2011 V25.9 Gynecologic Services Contraceptive Management 10/07/2011 V24.2 visit for: exam 10/07/2011 V25.01 Oral Contraceptives 10/07/2011 V25.9 Gynecologic Services Contraceptive Management 10/07/2011 V24.2 visit for: exam 10/07/2011 V25.01 Oral Contraceptives 10/07/2011 V25.9 Gynecologic Services Contraceptive Management 10/07/2011 V24.2 visit for: exam 10/07/2011 V25.01 Oral Contraceptives 10/07/2011 V25.9 Gynecologic Services Contraceptive Management 10/07/2011 NICHOLAS KHALIL DO V24.2 visit for: exam 10/07/2011 NICHOLAS KHALIL DO V25.01 Oral Contraceptives 10/07/2011 NICHOLAS KHALIL DO V25.9 Gynecologic Services Contraceptive Management 10/07/2011 JET RAZO APRN V24.2 visit for: exam 10/07/2011 JET RAZO APRN A V25.01 Oral Contraceptives 10/07/2011 JET RAZO APRN A V25.9 Gynecologic Services Contraceptive Management 10/07/2011 JET RAZO APRN V24.2 visit for: exam 10/07/2011 JET RAZO APRN V25.01 Oral Contraceptives 10/07/2011 JET RAZO APRN A V25.9 Gynecologic Services Contraceptive Management 10/07/2011 NICHOLAS KHALIL DO V24.2 visit for: exam 10/07/2011 NICHOLAS KHALIL DO V25.01 Oral Contraceptives 10/07/2011 NICHOLAS KHALIL DO V25.9 Gynecologic Services Contraceptive Management 10/07/2011 BRUNA [...] LOW BACK PAIN 01/22/2013 JET RAZO APRN 724.2 LUMBAGO/ LOW BACK PAIN 01/22/2013 JET RAZO APRN 724.2 LUMBAGO/ LOW BACK PAIN 01/22/2013 NICHOLAS KHALIL DO 724.2 LUMBAGO/ LOW BACK PAIN 01/22/2013 BRUNA WILD MD 724.2 LUMBAGO/ LOW BACK PAIN 01/22/2013 BRUNA WILD MD 724.2 LUMBAGO/ LOW BACK PAIN 01/22/2013 BRUNA WILD MD 724.2 LUMBAGO/ LOW BACK PAIN 01/22/2013 JET RAZO APRN 724.2 LUMBAGO/ LOW BACK PAIN 02/01/2013 381.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 02/01/2013 381.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 02/01/2013 381.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 02/01/2013 NICHOLAS KHALIL DO 381.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 02/01/2013 JET RAZO APRN 381.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 02/01/2013 JET RAZO APRN A 381.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 02/01/2013 NICHOLAS KHALIL DO 381.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 02/01/2013 BRUNA WILD MD 381.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 02/01/2013 BRUNA WILD MD 381.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 02/01/2013 BRUNA WILD MD 381.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 02/01/2013 JET RAZO APRN 381.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 03/15/2013 649.00 COMPL OF - TOBACCO USE 03/15/2013 649.00 COMPL OF - TOBACCO USE 03/15/2013 NICHOLAS KHALIL DO 649.00 COMPL OF - TOBACCO USE 03/15/2013 JET RAZO APRN 649.00 COMPL OF - TOBACCO USE 03/15/2013 JET RAZO APRN 649.00 COMPL OF - TOBACCO USE 03/15/2013 NICHOLAS KHALIL DO 649.00 COMPL OF - TOBACCO USE 03/15/2013 BRUNA WILD MD 649.00 COMPL OF - TOBACCO USE 03/15/2013 BRUNA WILD MD 649.00 COMPL OF - TOBACCO USE 03/15/2013 BRUNA WILD MD 649.00 COMPL OF - TOBACCO USE 03/15/2013 JET RAZO APRN A 649.00 COMPL OF - TOBACCO USE 03/26/2013 [...] KHALIL DO V72.42 TEST POSITIVE RESULT 12/20/2013 JET RAZO APRN A V72.42 TEST POSITIVE RESULT 12/20/2013 JET RAZO APRN A V72.42 TEST POSITIVE RESULT 12/20/2013 NICHOLAS KHALIL DO V72.42 TEST POSITIVE RESULT 12/20/2013 BRUNA WILD MD V72.42 TEST POSITIVE RESULT 12/20/2013 BRUNA WILD MD V72.42 TEST POSITIVE RESULT 12/20/2013 BRUNA WLID MD V72.42 TEST POSITIVE RESULT 12/20/2013 JET RAZO APRN A V72.42 TEST POSITIVE RESULT 12/22/2013 MARTIN RAZO APRNIDI A 654.20 PREVIOUS 12/22/2013 JET RAZO APRN A V23.7 , HIGH RISK W/ INSUFFICIENT CARE 12/22/2013 MARTIN RAZO APRNIDI A 654.20 PREVIOUS 12/22/2013 MARTIN RAZO APRNIDI A V23.7 , HIGH RISK W/ INSUFFICIENT CARE 12/22/2013 NICHOLAS KHALIL DO 654.20 PREVIOUS 12/22/2013 NICHOLAS KHALIL DO V23.7 , HIGH RISK W/ INSUFFICIENT CARE 12/22/2013 JUNITO STOVER, BRUNA Silver 654.20 PREVIOUS 12/22/2013 BRUNA WILD MD V23.7 , HIGH RISK W/ INSUFFICIENT CARE 12/22/2013 BRUNA WILD MD 654.20 PREVIOUS 12/22/2013 BRUNA WILD MD V23.7 , HIGH RISK W/ INSUFFICIENT CARE 12/22/2013 BRUNA WILD MD 654.20 PREVIOUS 12/22/2013 BRUNA WILD MD V23.7 , HIGH RISK W/ INSUFFICIENT CARE 12/22/2013 MARTIN RAZO APRNIDI A 654.20 PREVIOUS 12/22/2013 MARTIN RAZO APRNIDI A V23.7 , HIGH RISK W/ INSUFFICIENT CARE 01/05/2014 MARTIN RAZO APRNIDI A 648.30 COMPL OF - DRUG DEPENDENCE 01/05/2014 MARTIN RAZO APRNIDI A V04.3 RUBELLA NON-IMMUNE - NEED FOR VACCINATION 01/05/2014 MARTIN RAZO APRNIDI A V74.5 STD SCREEN 01/05/2014 MARTIN RAZO APRNIDI A V76.2 CERVICAL CANCER SCREENING (PAP SMEAR) 01/05/2014 NICHOLAS KHALIL DO 648.30 COMPL OF - DRUG [...] V76.2 CERVICAL CANCER SCREENING (PAP SMEAR) 01/05/2014 JET RAZO APRN 648.30 COMPL OF - DRUG DEPENDENCE 01/05/2014 JET RAZO APRN V04.3 RUBELLA NON-IMMUNE - NEED FOR VACCINATION 01/05/2014 JET RAZO APRN V74.5 STD SCREEN 01/05/2014 JET RAZO APRN V76.2 CERVICAL CANCER SCREENING (PAP SMEAR) 02/09/2014 NICHOLAS KHALIL DO V06.1 TDAP DX 02/09/2014 BRUNA WILD MD V06.1 TDAP DX 02/09/2014 BRUNA WILD MD V06.1 TDAP DX 02/09/2014 BRUNA WILD MD V06.1 TDAP DX 02/09/2014 JET RAZO APRN V06.1 TDAP DX 04/18/2014 MAURICE SERRANO DO Ot 649.01 TOBACCO USE DISORDER COMP PREG/CHILDBIRT 04/18/2014 MAURICE SERRANO DO Ot 654.21 PREV DELIVRY W/ OR W/O MENT ANT 04/18/2014 MAURICE SERRANO DO Ot 663.31 CORD ENTANGLE NEC-DELIV 04/18/2014 MAURICE SERRANO DO Ot V06.4 DLS-AWLGKD-HUDMM-RUBELLA 04/18/2014 MAURICE SERRANO DO Ot V27.0 DELIVER-SINGLE LIVEBORN 06/15/2016 Ot V28.8 11/13/2016 Ot V28.8 01/13/2017 Ot V28.8 11/30/2017 JET RAZO APRN Ot V28.81 ENCOUNTER FOR ANATOMIC SURVEY 11/30/2017 JUNITO STOVER, BRUNA Silver Ot 652.23 BREECH PRESENT-ANTEPART 11/30/2017 BRUNA WILD MD Ot V28.81 ENCOUNTER FOR ANATOMIC SURVEY 11/30/2017 MAURICE SERRANO DO Ot 654.23 PREV DELIVERY, ANTEPARTUM COND 11/30/2017 MAURICE SERRANO DO Ot V72.84 EXAM PRE-OPERATIVE NOS 12/01/2017 JOE FISHMAN DO Ot F17.210 NICOTINE DEPENDENCE, CIGARETTES, UNCOMPL 12/01/2017 JOE FISHMAN DO Ot K02.9 DENTAL CARIES, UNSPECIFIED 12/01/2017 JOE FISHMAN DO Ot K04.7 PERIAPICAL ABSCESS WITHOUT SINUS 12/01/2017 JOE FISHMAN DO Ot K08.89 OTHER SPECIFIED DISORDERS OF TEETH AND S 12/01/2017 JOE FISHMAN DO Ot Z87.59 PERSONAL HISTORY OF COMP OF PREG, CHLDBR 12/01/2017 JOE FISHMAN DO Ot Z88.1 ALLERGY STATUS TO OTHER ANTIBIOTIC AGENT 12/01/2017 JOE FISHMAN DO, Ot Z98.51 TUBAL LIGATION STATUS 12/02/2017 JOE FISHMAN DO Ot F17.210 NICOTINE DEPENDENCE, CIGARETTES, UNCOMPL 12/02/2017 JOE FISHMAN DO Ot K02.9 DENTAL CARIES, UNSPECIFIED 12/02/2017 JOE FISHMAN DO Ot K04.7 PERIAPICAL ABSCESS WITHOUT SINUS 12/02/2017 JOE FISHMAN DO Ot K08.89 OTHER SPECIFIED DISORDERS OF TEETH AND S 12/02/2017 JOE FISHMAN DO Ot Z87.59 PERSONAL HISTORY OF COMP OF PREG, CHLDBR 12/02/2017 JOE FISHMAN DO Ot Z88.1 ALLERGY STATUS TO OTHER ANTIBIOTIC AGENT 12/02/2017 JOE FISHMAN DO Ot Z98.51 TUBAL LIGATION STATUS 12/11/2017 TEMO [...] K02.9 DENTAL CARIES, UNSPECIFIED 12/13/2017 TEMO FLANAGAN MD Ot K04.7 PERIAPICAL ABSCESS WITHOUT SINUS 12/13/2017 TEMO FLANAGAN MD Ot L03.211 CELLULITIS OF FACE 12/13/2017 TEMO FLANAGAN MD Ot M60.08 INFECTIVE MYOSITIS, OTHER SITE 12/13/2017 TEMO FLANAGAN MD Ot R09.02 HYPOXEMIA 12/13/2017 TEMO FLANAGAN MD Ot R25.2 CRAMP AND SPASM 01/04/2018 HIREN SIMON MD Ot K04.7 PERIAPICAL ABSCESS WITHOUT SINUS 01/04/2018 HIREN SIMON MD Ot L02.01 CUTANEOUS ABSCESS OF FACE 01/04/2018 HIREN SIMON MD Ot R25.2 CRAMP AND SPASM 01/04/2018 HIREN SIMON MD Ot R45.851 SUICIDAL IDEATIONS 02/04/2018 Ot V28.8 02/04/2018 Ot 641.03 PLACENTA PREVIA-ANTEPART 02/04/2018 Ot 654.23 PREV DELIVERY, ANTEPARTUM COND 02/04/2018 Ot 641.03 PLACENTA PREVIA-ANTEPART 02/04/2018 Ot 654.23 PREV DELIVERY, ANTEPARTUM COND 02/04/2018 Ot V72.63 PRE- PROCEDURAL LABORATORY EXAMINATION 02/04/2018 Ot V74.8 SCREEN- BACTERIAL DIS NEC 02/04/2018 JET RAZO APRN Ot V28.81 ENCOUNTER FOR ANATOMIC SURVEY 02/04/2018 JUNITO STOVER, BRUNA Silver Ot 652.23 BREECH PRESENT-ANTEPART 02/04/2018 BRUNA WILD MD Ot V28.81 ENCOUNTER FOR ANATOMIC SURVEY 02/04/2018 MAURICE SERRANO DO Ot 654.23 PREV DELIVERY, ANTEPARTUM COND 02/04/2018 MAURICE SERRANO DO Ot V72.84 EXAM PRE-OPERATIVE NOS Procedures Code Description Performed By Performed On 96.49 OTHER INSTILLATION 12/17/2007 73.59 MANUAL ASSIST DELIV NEC 12/18/2007 74.1 LOW CERVICAL 01/05/2010 72.79 VACUUM EXTRACT DEL NEC 07/23/2011 74.1 LOW CERVICAL 07/23/2011 99.77 APPL/ADMIN OF AN ADHESION BARRIER SUBSTA 07/23/2011 06710 URINE TEST (IN- HOUSE) 03/15/2013 02155 US OB - EARLY <14 WEEKS 03/16/2013 16022 TEST, URINE (IN- HOUSE) 12/20/2013 50800 ROUTINE VENIPUNCTURE 12/22/2013 95755 UA OB DIP 12/22/2013 35589 URINE DRUG SCREEN (IN-HOUSE ) 12/22/2013 24193 US OB - COMPLETE >14 WEEKS 12/22/2013 39883 SYPHILLIS-[facility] 12/22/2013 61216 HIV ([facility]) 12/22/2013 18589 ANTIBODY SCREEN (order) 12/22/2013 94904 HEP B SURFACE ANTIGEN (STATE ) 12/22/2013 44891 CBC 12/23/2013 35352 TSH 12/23/2013 2137990 ANTIBODY SCREEN (RESULT ONLY) 12/24/2013 48510 BLOOD TYPE/Rh FACTOR 12/24/2013 06260 RUBELLA ANTIBODY, IGG 12/24/2013 59503 CULTURE URINE 12/24/2013 71651 UA OB DIP 01/05/2014 64765 TRICHOMONAS (IN-HOUSE) 01/05/2014 64331 GC/CHLAM PROBE (STATE) 01/07/2014 Q0091 PAP SMEAR OBTAIN SMEAR 01/07/2014 45446 CULTURE UROGENITAL 01/08/2014 68033 PAP SMEAR 01/10/2014 49751 ROUTINE VENIPUNCTURE 01/19/2014 57638 UA OB DIP 01/19/2014 51082 GLUCOSE KWADWO 1 HOUR 01/19/2014 30500 UA OB DIP 02/09/2014 55596 OB - FOLLOW UP 02/15/2014 89397 UA OB DIP 02/23/2014 18725 UA OB DIP 03/23/2014 45230 CULTURE GROUP B STREP VAG 03/25/2014 77578 UA OB DIP 03/30/2014 33836 UA OB DIP 04/06/2014 11380 UA OB DIP 04/13/2014 Obstetric Abiel Medina 04/13/2014 74.1 LOW CERVICAL 04/15/2014 [id number] DRAINAGE OF BUCCAL MUCOSA , PERCUTANEOUS 12/08/2017 [id number] RESECTION OF UPPER TOOTH, MULTIPLE, OPEN 12/08/2017 [id number] RESECTION OF LOWER TOOTH, SINGLE, OPEN A 12/08/2017 [id number] DRAINAGE OF BUCCAL MUCOSA , PERCUTANEOUS 12/11/2017 [id number] DRAINAGE OF BUCCAL MUCOSA , PERCUTANEOUS 01/02/2018 Results Test Result Range Complete blood count [...] Bacteria identification in isolate by anaerobe culture [id number] Gram stain microscopy - 12/08/17 18:58 GRAM STAIN RESULT FEW GRAM NEGATIVE RODS NRG Bacteria identification in wound by culture - 12/08/17 18:58 Bacteria identification in wound by culture [id number] NR FREE TEXT EXTERNAL MORE THAN ONE COLONY TYPE NRG QUANTITY OF GROWTH Moderate Growth NRG FREE TEXT ENTRY [id number] [facility] Comprehensive metabolic panel - 12/09/17 05:10 Serum [...] Bacteria identification in isolate by anaerobe culture [id number] [facility] Automated blood complete blood count (hemogram) panel [...] platelet mean volume measurement 10.4 [foz_us] 7.4-10.4 Whole blood basic metabolic panel - 01/01/18 16:10 Serum or plasma sodium measurement (moles/volume) 138 mmol/L 135-145 Serum or plasma potassium measurement (moles/volume) 3.8 mmol/L 3.6-5.0 Serum or plasma chloride measurement (moles/volume) 105 mmol/L 98-107 Carbon dioxide 25 mmol/L 21-32 Serum or plasma anion gap determination (moles/volume) 8 mmol/L 5-14 Serum or plasma urea nitrogen measurement (mass/volume) 4 mg/dL 7-18 Serum or plasma creatinine measurement (mass/volume) 0.67 mg/dL 0.60-1.30 Serum or plasma urea nitrogen/creatinine mass ratio 6 NRG Serum or plasma creatinine measurement with calculation of estimated glomerular filtration rate > NRG Serum or plasma glucose measurement (mass/volume) 81 mg/dL 70-105 Serum or plasma calcium measurement (mass/volume) 8.9 mg/dL 8.5-10.1 Complete blood count (CBC) with automated white blood cell (WBC) differential - 01/01/18 16:10 Blood leukocytes automated count (number/volume) 12.2 10*3/uL 4.3-11.0 Blood erythrocytes automated count (number/volume) 4.24 10*6/uL 4.35-5.85 Venous blood hemoglobin measurement (mass/volume) 11.3 g/dL 11.5-16.0 Blood hematocrit (volume fraction) 36 % 35-52 Automated erythrocyte mean corpuscular volume 84 [foz_us] 80-99 Automated erythrocyte mean corpuscular hemoglobin (mass per erythrocyte) 27 pg 25-34 Automated erythrocyte mean corpuscular hemoglobin concentration measurement ( mass/volume) 32 g/dL 32-36 Automated erythrocyte distribution width ratio 15.8 % 10.0-14.5 Automated blood platelet count (count/volume) 386 10*3/uL 130-400 Automated blood platelet mean volume measurement 11.3 [foz_us] 7.4-10.4 Automated blood neutrophils/100 leukocytes 62 % 42-75 Automated blood lymphocytes/100 leukocytes 26 % 12-44 Blood monocytes/100 leukocytes 11 % 0-12 Automated blood eosinophils/100 leukocytes 1 % 0-10 Automated blood basophils/100 leukocytes 0 % 0-10 Blood neutrophils automated count (number/volume) 7.6 10*3 1.8-7.8 Blood lymphocytes automated count (number/volume) 3.2 10*3 1.0-4.0 Blood monocytes automated count (number/volume) 1.3 10*3 0.0-1.0 Automated eosinophil count 0.1 10*3/uL 0.0-0.3 Automated blood basophil count (count/volume) 0.0 10*3/uL 0.0-0.1 Methicillin resistant Staphylococcus aureus (MRSA) screening culture - 10:48 Methicillin resistant Staphylococcus aureus (MRSA) screening culture NEG NRG Urine beta human chorionic gonadotropin (hCG) measurement - 01/02/18 13:30 Urine beta human chorionic gonadotropin (hCG) measurement NEGATIVE NEGATIVE Bacteria identification in isolate by anaerobe culture - 01/02/18 15:28 FREE TEXT EXTERNAL 2 COLONY TYPES NRG QUANTITY OF GROWTH Abundant Growth NRG Bacteria identification in isolate by anaerobe culture [id number] NRG Gram stain microscopy - 01/02/18 15:28 Gram stain microscopy Few gram negative coccobacilli/rods NRG Bacteria identification in wound by culture - 01/02/18 15:28 Bacteria identification in wound by culture NG NR Blood CBC with ordered manual differential panel - 01/04/18 04:10 Blood leukocytes automated count (number/volume) 14.6 10*3/uL 4.3-11.0 Blood erythrocytes automated count (number/volume) 3.97 10*6/uL 4.35-5.85 Venous blood hemoglobin measurement (mass/volume) 10.7 g/dL 11.5-16.0 Blood hematocrit (volume fraction) 33 % 35-52 Automated erythrocyte mean corpuscular volume 84 [foz_us] 80-99 Automated erythrocyte mean corpuscular hemoglobin (mass per erythrocyte) 27 pg 25-34 Automated erythrocyte mean corpuscular hemoglobin concentration measurement ( mass/volume) 32 g/dL 32-36 Automated erythrocyte distribution width ratio 16.1 % 10.0-14.5 Automated blood platelet count (count/volume) 475 10*3/uL 130-400 Automated blood platelet mean volume measurement 11.4 [foz_us] 7.4-10.4 Automated blood neutrophils/100 leukocytes 86 % 42-75 Automated blood lymphocytes/100 leukocytes 10 % 12-44 Blood monocytes/100 leukocytes 2 % NRG Automated blood eosinophils/100 leukocytes 0 % 0-10 Automated blood basophils/100 leukocytes 0 % 0-10 Blood neutrophils automated count (number/volume) 12.5 10*3 1.8-7.8 Blood lymphocytes automated count (number/volume) 1.4 10*3 1.0-4.0 Blood monocytes automated count (number/volume) 0.7 10*3 0.0-1.0 Automated eosinophil count 0.0 10*3/uL 0.0-0.3 Automated blood basophil count (count/volume) 0.0 10*3/uL 0.0-0.1 Manual blood segmented neutrophils/100 leukocytes 83 % NRG Manual blood lymphocytes/100 leukocytes 15 % NRG Blood anisocytosis detection by light microscopy SLIGHT NRG Encounters ACCT No. Visit Date/Time Discharge Status Pt. Type Provider Facility Loc./Unit Complaint [id number] 05/26/2014 10:56:00 05/26/2014 23:59:59 CLS Outpatient DUNGTREVA VILLA JET A [id number] 04/13/2014 13:39:00 04/13/2014 23:59:59 CLS Outpatient BRUNA WILD MD [id number] 04/06/2014 13:16:00 04/06/2014 23:59:59 CLS Outpatient BRUNA WILD MD [id number] 03/30/2014 15:02:00 03/30/2014 23:59:59 CLS Outpatient BRUNA WILD MD [id number] 02/23/2014 15:11:00 02/23/2014 23:59:59 CLS Outpatient NICHOLAS KHALIL DO [id number] 12/22/2013 15:31:00 12/22/2013 23:59:59 CLS Outpatient MARTIN RAZO APRNMEÑO [place] [id number] 12/22/2013 15:31:00 12/22/2013 23:59:59 CLS Outpatient DUNG HOLTNMARTINJET A [id number] 12/20/2013 14:16:00 12/20/2013 23:59:59 CLS Outpatient NICHOLAS KHALIL DO [id number] 03/26/2013 16:18:00 Document Registration [id number] 03/15/2013 15:54:00 Document Registration [id number] 02/01/2013 13:04:00 Document Registration [id number] 01/22/2013 10:16:00 Document Registration [id number] 12/08/2017 08:40:00 12/08/2017 23:59:59 [facility] [id number] 01/01/2018 14:43:00 01/04/2018 12:50:00 DIS Inpatient AURORA STOVER, HIREN Mcdowell [facility] 4TH CELLULITIS OF FACE [id number] 12/08/2017 11:30:00 12/13/2017 11:10:00 DIS Inpatient TEMO FLANAGAN MD [facility] 4TH DENTAL ABSCESS WITH FACIAL CELLULITIS,FAILURE OF O [id number] 11/30/2017 23:24:00 12/01/2017 00:15:00 DIS Emergency JOE FISHMAN DO [facility] ER TOOTH PAIN [id number] 04/15/2014 06:55:00 04/18/2014 10:40:00 DIS Inpatient MAURICE SERRANO DO [facility] LDRP PREVIOUS SECTION [id number] 04/13/2014 07:20:00 04/13/2014 23:59:59 CLS Outpatient MAURICE SERRANO DO [facility] PREOP PREVIOUS SECTION [id number] 02/15/2014 13:35:00 02/15/2014 23:59:59 CLS Outpatient BRUNA WILD MD [facility] RAD F/U TO COMPLETE SURVEY [id number] 01/03/2014 12:56:00 01/03/2014 23:59:59 CLS Outpatient JET RAZO [employer] [facility] RAD DATING, SURVEY [id number] 05/17/2013 11:22:00 05/17/2013 23:59:59 CLS Outpatient NWAGWU ISIDORE O [employer] [facility] QUICK SORE THROAT/ HEADACH [id number] 03/25/2013 21:11:00 03/26/2013 00:35:00 DIS Emergency KLEVER MARTINEZ [facility] ER VAG BLEED @ 13 WEEKS [id number] 10/15/2018 22:56:00 ACT Emergency HERNESTO SCHAEFER MD [facility] ER COUGH,FEVER,LOWER BACK PAIN [id number] 02/04/2018 09:41:00 Document Registration [id number] 02/04/2018 09:41:00 Document Registration [id number] 02/04/2018 09:41:00 Document Registration [id number] 02/04/2018 09:41:00 Document Registration [id number] 02/04/2018 09:41:00 Document Registration [id number] 02/04/2018 09:41:00 Document Registration [id number] 02/04/2018 09:41:00 Document Registration [id number] 02/04/2018 09:41:00 Document Registration [id number] 02/04/2018 09:41:00 Document Registration [id number] 11/30/2017 23:43:00 Document Registration [id number] 07/23/2011 05:39:00 Document Registration [id number] 07/16/2011 12:01:00 Document Registration [id number] 06/07/2011 10:54:00 Document Registration [id number] 04/01/2011 20:37:00 Document Registration [id number] 04/01/2011 19:55:00 Document Registration [id number] 03/20/2011 10:15:00 Document Registration [id number] 01/05/2010 21:48:00 Document Registration [id number] 12/04/2009 15:40:00 Document Registration [id number] 11/27/2009 17:40:00 Document Registration [id number] 12/17/2007 17:36:00 Document Registration [id number] 11/27/2007 03:00:00 Document Registration [id number] 11/21/2007 22:13:00 Document Registration [id number] 11/20/2007 09:00:00 Document Registration [id number] 10/13/2007 03:13:00 Document Registration
--- NOTE | 2018-10-15 23:42 | ED Cough/URI ---
General Stated Complaint: COUGH,FEVER,LOWER BACK PAIN Source: patient, other Exam Limitations: no limitations History of Present Illness Date Seen by Provider: Oct 15, 2018 Time Seen by Provider: 23:30 Initial Comments Patient presents to ER by private conveyance with chief complaint that for the past couple days she's had a cough some warm subjective fevers and tonight started having some pain in her lower back that goes across the back right more than left. She doesn't have a history of chronic back pain. No dysuria or discharge. Her tubes are tied. She took some Tylenol and ibuprofen with her last dose being about 6 hours ago with minimal relief. She said she was doing some moving of furniture in the last day and thinking that may have worsened her pain. She has a sore throat but no fullness in her ears or rhinorrhea. Her cough is nonproductive. She also has some pain radiating down her bilateral buttocks. Usually smokes about half pack cigarettes. Son was recently diagnosed with strep throat. Allergies and Home Medications Allergies Coded Allergies: metronidazole (Verified Allergy, Unknown, RASH, 12/08/17) Home Medications Clindamycin HCl 300 Mg Capsule, 300 MG PO QID Prescribed by: JERRY THAKUR on 01/04/18 1218 Hydrocodone/Acetaminophen 1 Each Tablet, 1 EACH PO Q4H PRN for PAIN-MILD Prescribed by: JERRY THAKUR on 01/04/18 1218 Patient Home Medication List Home Medication List Reviewed: Yes Review of Systems Review of Systems Constitutional: chills; No diaphoresis, No fever; malaise EENTM: No ear pain, No eye pain Respiratory: cough; No phlegm, No short of breath, No wheezing Cardiovascular: No chest pain, No edema Gastrointestinal: No abdominal pain, No constipation, No diarrhea; nausea; No vomiting Genitourinary: No discharge, No dysuria : No (tubal ligation) Musculoskeletal: see HPI, back pain; No joint pain Past Dgwbrny-Gfnzlf-Xazqej Hx Patient Social History Type Used: Electronic/Vapor 2nd Hand Smoke Exposure: Yes Recent Foreign Travel: No Contact w/Someone Who Travel: No Recent Hopitalizations: No Immunizations Up To Date Tetanus Booster (TDap): Less than 5yrs Seasonal Allergies Seasonal Allergies: No Past Medical History Surgeries: Yes (C-SECITON X 3; BTL) Section, Tubal Ligation Respiratory: No Cardiac: No Neurological: No 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 Disorders: No Female 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 Disorders: 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: Tubal 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 3.0oz. [id number]; 29.8 BMI Method:Stated General Appearance: WD/WN, mild distress Eyes: Bilateral Eye Normal Inspection, Bilateral Eye PERRL, Bilateral Eye EOMI HEENT: PERRL/EOMI, normal ENT inspection, TMs normal, pharyngeal erythema; No tonsillar exudate Neck: non-tender, full range of motion, supple, normal inspection Respiratory: chest non-tender, lungs clear, normal breath sounds, no respiratory distress, no accessory muscle use Cardiovascular: normal peripheral pulses, regular rate, rhythm, no edema Extremities: normal range of motion, non-tender, normal inspection, no pedal edema, normal capillary refill, other (negative straight leg test.) Neurologic/Psychiatric: no motor/sensory deficits, alert, normal mood/affect, oriented x 3, other (bilateral deep tendon reflexes of the patella or 3 out of 5.) Skin: normal color, diaphoresis Progress/Results/Core Measures Suspected Sepsis SIRS Temperature: Pulse: Respiratory Rate: Blood Pressure / Mean: Results/Orders Lab Results Laboratory Tests Test 10/15/18 23:25 10/15/18 23:35 Range/Units Urine Color YELLOW Urine Clarity CLEAR Urine pH 5 5-9 Urine Specific [place] 1.010 L 1.016-1.022 Urine Protein NEGATIVE NEGATIVE Urine Glucose (UA) NEGATIVE NEGATIVE Urine Ketones NEGATIVE NEGATIVE Urine Nitrite NEGATIVE NEGATIVE Urine Bilirubin NEGATIVE NEGATIVE Urine Urobilinogen NORMAL NORMAL MG/DL Urine Leukocyte Esterase NEGATIVE NEGATIVE Urine RBC (Auto) NEGATIVE NEGATIVE Urine RBC NONE /HPF Urine WBC NONE /HPF Urine Squamous Epithelial Cells 5-10 /HPF Urine Crystals NONE /LPF Urine Bacteria NEGATIVE /HPF Urine Casts NONE /LPF Urine Mucus NEGATIVE /LPF Urine Culture Indicated NO Group A Streptococcus Screen NEGATIVE NEGATIVE Micro Results Microbiology 10/15/18 Influenza Types A,B Antigen (ELMER) - Final, Complete My Orders Orders - HERNESTO SCHAEFER Ondansetron Oral Dissolve Tab (Zofran (10/15/18 23:45) Ketorolac Injection (Toradol Injection) (10/15/18 23:45) Influenza A And B Antigens (10/15/18 23:36) Ua Culture If Indicated (10/15/18 23:36) Rapid Strep A Screen (10/15/18 23:36) Medications Given in ED Current Medications Medications Dose Ordered Sig/Gaurav Route Start Time Stop Time Status Last Admin Dose Admin Ketorolac Tromethamine 30 mg ONCE ONCE IM 10/15/18 23:45 10/15/18 23:46 DC 10/15/18 23:43 30 MG Ondansetron HCl 4 mg ONCE ONCE PO 10/15/18 23:45 10/15/18 23:46 DC 10/15/18 23:43 4 MG Vital Signs/I&O 10/15/18 23:25 Temp 98.9 Pulse 115 Resp 17 B/P (MAP) 116/69 (85) O2 Delivery Room Air Capillary Refill : Progress Note : Time: 23:41 Progress Note We'll start with an influenza and rapid strep. Her pain is worse with palpation directly over her paraspinous muscles of her right back. Muscle relaxants and anti-inflammatories such as NSAIDs would be a first step. After giving her some for pain will see if her heart rate stays up. Lungs sound clear so we'll pursue that. Sounds like viral upper respiratory possibly bronchitis. No red flag signs for back pain. Departure Impression Primary Impression: URI (upper respiratory infection) Qualified Codes: J06.9 - Acute upper respiratory infection, unspecified Additional Impression: Back pain Qualified Codes: M54.5 - Low back pain Disposition: 01 HOME, SELF-CARE Condition: Stable Departure-Patient Inst. Decision time for Depature: 00:19 Referrals: [facility] (PCP/Family) Primary Care Physician Patient Instructions: Low Back Pain (DC) Add. Discharge Instructions: Use the Naprosyn 2 capsules twice a day for the next 1-2 weeks on a routine basis. You can also use Tylenol 1000 mg every 8 hours including heat, icy hot or Biofreeze etc. Get some rest for your back today. Follow-up with primary care if not seeing some improvement in 1-2 weeks. Humidifiers and vapor rubs can be helpful for your cough. If you're still having some back spasms you can use cyclobenzaprine 1 tablet every 8 hours but will cause drowsiness. Scripts Cyclobenzaprine HCl (Cyclobenzaprine HCl) 10 Mg Tablet 10 MG PO Q8H PRN for SPASMS, #15 TAB 0 Refills Prov: HERNESTO SCHAEFER 10/16/18 Work/School Note: Work Release Form Date Seen in the Emergency Department: Oct 16, 2018 Return to Work: Oct 17, 2018 Restrictions: No Restrictions HERNESTO SCHAEFER Oct 15, 2018 23:42
[2018-10-15] MEDS ORDERED: ONDANSETRON 4 MG (ZOFRAN) ORAL DISSOLVE TAB PO ONE (23:45)
[2018-10-15] MEDS ORDERED: KETOROLAC 30 MG/ML VIAL IM ONE (23:45)
[2018-10-16 00:01] LABS: BILIRUBIN,URINE NEGATIVE (NEGATIVE); CLARITY,URINE CLEAR; COLOR,URINE YELLOW; GLUCOSE, URINE (UA) NEGATIVE (NEGATIVE); KETONES,URINE NEGATIVE (NEGATIVE); LEUKOCYTE ESTERASE ,URINE NEGATIVE (NEGATIVE); NITRITE,URINE NEGATIVE (NEGATIVE); PH,URINE 5 (5-9); PROTEIN,URINE NEGATIVE (NEGATIVE); UROBILINOGEN,URINE NORMAL (NORMAL)
[2018-10-16 00:13] LABS: BACTERIA,URINE NEGATIVE /HPF
[2018-10-16] MEDS ORDERED: CYCL10TA9 PO (00:24)
[2018-10-16] MEDS ORDERED: ORPHENADRINE 60 MG/2 ML (NORFLEX) AMP IM ONE (00:30)
[2018-10-16 00:47] VITALS: BP 110/65
== END 2018-10-16 00:48 | disposition home or self-care (01) ==
LOC: EDUNIT# 22:55 → ER 22:56
DX: J06.9 Acute upper respiratory infection, unspecified (principal); M54.5 Low back pain; Z88.8 Allergy status to other drugs, medicaments and biological substances; Z77.22 Contact with and (suspected) exposure to environmental tobacco smoke (acute) (chronic); Z98.890 Other specified postprocedural states; Z98.51 Tubal ligation status; Z82.49 Family history of ischemic heart disease and other diseases of the circulatory system
CPT/HCPCS: 81000; 87430; 87804